=== PATIENT | male | born 1955 | race Two or more races ===

== ENCOUNTER 2024-05-06 10:38 | Emergency (ER) | payer MEDICARE, OTHER ==
[~2024-05-06] VITALS: Ht 172.7 cm; Wt 72.8 kg
--- NOTE | 2024-05-06 11:51 | DVH ---
EXAM: CT HEAD WITHOUT CONTRAST INDICATION: fall injury TECHNIQUE: CT of the head without intravenous contrast. Radiation Dose : 1. Head: CT Dose: CTDI volume is 50 mGy. Dose-length product is 908 mGy*cm The dose indicators for CT are the volume Computed Tomography (CT) Dose Index (CTDIvol) and the Dose Length Product (DLP), and are measured in units of mGy and mGy-cm, respectively. These indicators are not patient dose, but values generated from the CT scanner acquisition factors. The report includes radiation exposure data for exposures received during this examination. COMPARISON: None FINDINGS: There is no evidence of acute intracranial hemorrhage, extra-axial collection, mass effect, midline s hift, herniation or hydrocephalus. 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 The samaniego-white differentiation is intact. Patchy periventricular and subcortical white matter hypoattenuation is nonspecific but may be related to small vessel ischemic disease. The visualized paranasal sinuses and mastoid air cells are clear. The surrounding soft tissues and osseous structures are unremarkable. IMPRESSION: 1. No acute intracranial abnormality. 2. Chronic infarct in the right occipital region. Radiation optimization: All CT scans at this facility use at least one of these dose optimization deloris hniques: automated exposure control mA and/or kV adjustment per patient size (includes targeted exam s where dose is matched to clinical indication) or iterative reconstruction.
--- NOTE | 2024-05-06 11:51 | ED.PDOC ---
Jing. trauma (HPI) HPI Comments 69 y.o male accompanied by daughter, presents to the ED for an evaluation of ALOC this morning around 0200 associated with left sided rib pain. Daughter reports patient woke up to use the restroom, heard a loud noise and found patient unconscious and on the floor. Patient was hard to arouse and when he did regain consciousness, he was unable to to call LOC. Patient reports feeling a tingling sensation to bilateral legs prior to syncopal and is now radiated throughout his body including his hands. Daughter mentions assisting patient up to his room, took his blood pressure and blood glucose then which both were elevated. BG read 186 at home and upon arrival read 286. Patient complains of left rib pain, tender on palpation and described as sharp and non radiating. Patient denies any head, neck, back pain, chest pain, SOB, dizziness now, fever, chills or recent illness/sick contact exposure. 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 Chief Complaint: Fall Injury Time Seen by MD: 11:36 Primary Care Provider: AMELIE Reviewed notes: Nurses Notes, Medications, Allergies Allergies: Coded Allergies: NO KNOWN ALLERGIES (Unverified , 05/06/24) Home Meds Active Scripts Gabapentin (Gabapentin) 300 Mg Cap, 1 CAP PO TID PRN for 10 Days, #60 CAP 5 Refills Prov:HARMEET PAGAN MD 05/06/24 Hydrocodone-Acetaminophen (Hydrocodone Bitartrate/AC 5-325 mg) 1 Tab Tab, 1 TAB PO Q6HP PRN for 10 Days, #40 TAB Prov:HARMEET PAGAN MD 05/06/24 Information Source: Patient, Relative (Daughter ) Mode of Arrival: Wheelchair Severity: Moderate Timing: Hours Duration: Since onset Location: Other (left rib pain ) Location of laceration: None Mechanism: Fall Associated signs and symtoms: Other Past Medical History PAST MEDICAL HISTORY: CVA, DM, AL, PE Surgical History: PTCA Family History Family History: Reviewed,noncontributory to illness Social History Smoker: Non-Smoker Alcohol: Denies ETOH Use Drugs: Denies Drug Use Lives In: Home Constitutional: denies: chills, diaphoresis, fatigue, fever, malaise, sweats, weakness, others EENTM: denies: blurred vision, double vision, ear bleeding, ear discharge, ear drainage, ear pain, ear ringing, eye pain, eye redness, hearing loss, mouth pain, mouth swelling, nasal discharge, nose bleeding, nose congestion, nose pain, photophobia, tearing, throat pain, throat swelling, voice changes, others Respiratory: denies: cough, hemoptysis, orthopnea, SOB at rest, shortness of breath, SOB with excertion, stridor, wheezing, others Cardiovascular: reports: syncope; denies: chest pain, dizzy spells, diaphoresis, Dyspnea on exertion, edema, irregular heart beat, left arm pain, lightheadedness, palpitations, PND, others Gastrointestinal: denies: abdomen distended, abdominal pain, blood streaked bowels, constipated, diarrhea, dysphagia, difficulty swallowing, hematemesis, melena, nausea, poor appetite, poor fluid intake, rectal bleeding, rectal pain, vomiting, others Genitourinary: denies: burning, dysuria, flank pain, frequency, hematuria, incontinence, penile discharge, penile sore, pain, testicle pain, testicle swelling, urgency, others Neurological: reports: fainting, tingling (body ); denies: dizziness, headache, left sided numbness, left sided weakness, numbness, paresthesia, pre-existing deficit, right sided numbness, right sided weakness, seizure, speech problems, tremors, weakness, others Musculoskeletal: reports: others (left sided rib pain ); denies: back pain, gout, joint pain, joint swelling, muscle pain, muscle stiffness, neck pain Integumetry: denies: bruises, change in color, change in hair/nails, dryness, laceration, lesions, lumps, rash, wounds, others Allergic/Immunocompromised: denies: Difficulty Healing, Frequent Infections, Hives, Itching, others Hematologic/Lymphatic: denies: anemia, blood clots, easy bleeding, easy bruising, swollen glands, others Endocrine: denies: excessive hunger, excessive sweating, excessive thirst, excessive urination, flushing, intolerance to cold, intolerance to heat, unexplained weight gain, unexplained weight loss, others Psychiatric: denies: anxiety, bipolar disorder, depression, hopeless, panic disorder, schizophrenia, sleepless, suicidal, others All Other Systems: Reviewed and Negative Physical Exam General Appearance: Mild Distress HEENT: Normal ENT Inspection, Pharynx Normal, TMs Normal Neck: Full Range of Motion, Non-Tender, Normal, Normal Inspection Respiratory: Chest Non-Tender, Lungs Clear, No Accessory Muscle Use, No Respiratory Distress, Normal Breath Sounds Cardiovascular: No Edema, No JVD, No Murmur, No Gallop, Normal Peripheral Pulses, Regular Rate/Rhythm Breast Exam: Deferred Gastrointestinal: No Organomegaly, Non Tender, No Pulsatile Mass, Normal Bowel Sounds, Soft Genitalia: Deferred Pelvic: Deferred Rectal: Deferred Extremities: No calf tenderness, Normal capillary refill, Normal inspection, Normal range of motion, Non-tender, No pedal edema Musculoskeletal : Location: Left Apperance: Tenderness: Moderate (lateral posterior rib pain ) Neurologic: Alert, practice assistant II-XII nml as Tested, No Motor Deficits, Normal Affect, Normal Mood, No Sensory Deficits Cerebellar Function: Normal Reflexes: Normal Skin: Dry, Normal Color, Warm Lymphatic: No Adenopathy Was a procedure done? Was a procedure done?: No Differential Diagnosis Multiple Trauma: Closed Head Injury, Fractures, Abrasions, Contusion, Encephalopathy, Other (Hypertension, Hyperglycemia, CVA, TIA, Seizure) X-Ray, Labs, Meds, VS Vital Signs Date Time Temp Pulse Resp B/P (MAP) Pulse Ox O2 Delivery O2 Flow Rate FiO2 05/06/24 13:01 61 20 05/06/24 13:01 98.6 61 20 130/72 (91) 96 98.6 05/06/24 11:02 63 05/06/24 10:46 97.6 59 20 150/64 (92) 97 97.6 Lab Test 05/06/24 10:52 Range/Units POC Glucose 254 H 70-106 mg/dl Current Medications Medications (Trade) Dose Ordered Sig/Tara Route Start Time Stop Time Status Last Admin Acetaminophen/ Hydrocodone Bitart ([place] 5/325MG Tab) 1 tab ONCE ONCE PO 05/06/24 12:30 05/06/24 12:31 DC 05/06/24 12:52 EXAM: CT CERVICAL WITHOUT CONTRAST INDICATION: fall injury EXAM DATE: 05/06/2024 11:28 AM COMPARISON: None TECHNIQUE: Multiple axial CT images of the cervical spine were obtained using bone algorithm. Axial and coronal reformatting was done. Bone and soft tissue windows were reviewed. Radiation Dose Information: CT Dose: CTDI volume is 21.95 mGy. Dose-length product is 571.7 mGy*cm FINDINGS: The cervical alignment is intact. No acute cervical spine fracture is identified. The vertebral body heights are intact. No suspicious osseous lesions are identified. No significant degenerative changes are identified. There is no prevertebral soft tissue swelling. IMPRESSION: 1. No evidence of acute cervical spine fracture or traumatic malalignment. 2. All CT scans at this medical facility are performed using dose modulation deloris hniques as appropriate to a performed exam including the following: Automated exposure control was utilized; adjustment of the MA and/or KV according to patient size; and use of iterative reconstruction technique. EXAM: CT HEAD WITHOUT CONTRAST INDICATION: fall injury TECHNIQUE: CT of the head without intravenous contrast. Radiation Dose : 1. Head: CT Dose: CTDI volume is 50 mGy. Dose-length product is 908 mGy*cm The dose indicators for CT are the volume Computed Tomography (CT) Dose Index (CTDIvol) and the Dose Length Product (DLP), and are measured in units of mGy and mGy-cm, respectively. These indicators are not patient dose, but values generated from the CT scanner acquisition factors. The report includes radiation exposure data for exposures received during this examination. COMPARISON: None FINDINGS: There is no evidence of acute intracranial hemorrhage, extra-axial collection, mass effect, midline shift, herniation or hydrocephalus. 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 The samaniego-white differentiation is intact. Patchy periventricular and subcortical white matter hypoattenuation is nonspecific but may be related to small vessel ischemic disease. The visualized paranasal sinuses and mastoid air cells are clear. The surrounding soft tissues and osseous structures are unremarkable. IMPRESSION: 1. No acute intracranial abnormality. 2. Chronic infarct in the right occipital region. EXAMINATION: XY L RIB X RAY INDICATION: fall injury COMPARISON: None TECHNIQUE: Frontal view of the chest and 5 views of the left ribs history FINDINGS: No focal consolidation, pleural effusion or significant pneumothorax. Normal cardiomediastinal silhouette. Multiple left-sided rib fractures involving left 7th through 9th ribs. IMPRESSION: No acute cardiopulmonary disease. Multiple left-sided rib fractures involving left 7th through 9th ribs. Time of 1ST Reevaluation: 11:44 Reevaluation 1ST: Unchanged Patient Education/Counseling: Diagnosis, Treatment, Prognosis Family Education/Counseling: Diagnosis, Treatment, Prognosis Departure 1 Departure Time of Disposition: 12:30 Impression: Primary Impression: Type 2 diabetes mellitus with hyperglycemia Additional Impression: Left rib fracture Disposition: HOME / SELF CARE / HOMELESS Condition: Stable e-Prescriptions Gabapentin (Gabapentin) 300 Mg Cap 1 CAP PO TID PRN for 10 Days, #60 CAP 5 Refills Prov: HARMEET PAGAN MD 05/06/24 Hydrocodone-Acetaminophen (Hydrocodone Bitartrate/AC 5-325 mg) 1 Tab Tab 1 TAB PO Q6HP PRN for 10 Days, #40 TAB Prov: HARMEET PAGAN MD 05/06/24 Discharged With: Self Critical Care Note Critical Care Time?: No Stability Stability form required: No Heart Score Heart Score: Heart Score Response (Comments) Value History N/A 0 EKG N/A 0 Age N/A 0 Risk Factors N/A 0 Troponin N/A 0 Total 0 I personally scribed for HARMEET PAGAN MD ([email or web address]) on 05/06/24 at 11:51. Electronically submitted by Christel Henriquez ([facility] I personally scribed for HARMEET PAGAN MD ([email or web address]) on 05/06/24 at 12:46. Electronically submitted by Christel Henriquez ([facility] HARMEET PAGAN MD May 06, 2024 11:51
--- NOTE | 2024-05-06 12:08 | DVH ---
EXAM: CT CERVICAL WITHOUT CONTRAST INDICATION: fall injury EXAM DATE: 05/06/2024 11:28 AM COMPARISON: None TECHNIQUE: Multiple axial CT images of the cervical spine were obtained using bone algorithm. Axial a nd coronal reformatting was done. Bone and soft tissue windows were reviewed. Radiation Dose Information: CT Dose: CTDI volume is 21.95 mGy. Dose-length product is 571.7 mGy*cm FINDINGS: The cervical alignment is intact. No acute cervical spine fracture is identified. The vertebral body heights are intact. No suspicious osseous lesions are identified. No significant degenerative changes are identified. There is no prevertebral soft tissue swelling. IMPRESSION: 1. No evidence of acute cervical spine fracture or traumatic malalignment. 2. All CT scans at this medical facility are performed using dose modulation techniques as appropriat e to a performed exam including the following: Automated exposure control was utilized; adjustment of the MA and/or KV according to patient size; and use of iterative reconstruction technique.
--- NOTE | 2024-05-06 12:13 | DVH ---
EXAMINATION: XY L RIB X RAY INDICATION: fall injury COMPARISON: None TECHNIQUE: Frontal view of the chest and 5 views of the left ribs history FINDINGS: No focal consolidation, pleural effusion or significant pneumothorax. Normal cardiomediastinal silhou ette. Multiple left-sided rib fractures involving left 7th through 9th ribs. IMPRESSION: No acute cardiopulmonary disease. Multiple left-sided rib fractures involving left 7th through 9th ribs.
[2024-05-06] MEDS ORDERED: GABA-1250 PO (12:29)
[2024-05-06] MEDS ORDERED: HYDR-4902 PO (12:29)
[2024-05-06] MEDS: HYDROcodone-ACET 5/325MG TAB PO ONE (12:52)
[2024-05-06 13:01] VITALS: BP 130/72; PULSE 61; RESP 20; TEMP 98.6; O2SAT 96
--- NOTE | 2024-05-07 11:12 | ECG ---
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
== END 2024-05-06 13:08 | disposition home or self-care (01) ==
LOC: ER 10:38
DX: S22.42XA Multiple fractures of ribs, left side, initial encounter for closed fracture (principal); E11.65 Type 2 diabetes mellitus with hyperglycemia; Z79.899 Other long term (current) drug therapy; X58.XXXA Exposure to other specified factors, initial encounter; Y93.89 Activity, other specified; Y92.89 Other specified places as the place of occurrence of the external cause; Y99.8 Other external cause status
CPT/HCPCS: 70450; 71101; 72125; 82947; 82962; 93005

== ENCOUNTER → 2024-06-19 | Outpatient (CLI) | payer MEDICARE ==
[~2024-06-19] MED LIST: GABA-1250 PO; HYDR-4902 PO
[2024-06-19 08:29] LABS: Urine Bacteria None Seen /hpf (None Seen)
[2024-06-19 09:11] LABS: Basophils # (auto) 0 10 ^3/uL (0-0.2); Basophils % (auto) 0.5 % (0.0-2.0); Eosinophils # (auto) 0.2 10 ^3/uL (0-0.8); Eosinophils % (auto) 2.2 % (0.0-7.0); Hematocrit 50.1 % (41.0-53.0); Hemoglobin 17.2 g/dL (13.5-17.5); Lymphocytes # (auto) 1.9 10 ^3/uL (0.4-5.4); Lymphocytes % (auto) 23.7 % (10.0-50.0); Mean Corpuscular Hemoglobin 31.7 pg (28.0-32.0); Mean Corpuscular Hgb Conc. 34.3 g/dL (32.0-36.0); Mean Corpuscular Volume 92.5 fL (80.0-100.0); Monocytes # (auto) 0.4 10 ^3/uL (0-1.3); Monocytes % (auto) 5.3 % (0.0-12.0); Neutrophils # (auto) 5.3 10 ^3/uL (1.6-8.6); Neutrophils % (auto) 68.3 % (37.0-80.0); Nucleated Red Blood Cells % 0.2 %; Platelet Count (auto) 215 10^3/uL (140-450); Red Blood Cells 5.42 10^6/uL (4.5-5.90); White Blood Cell 7.8 10^3/uL (4.4-10.8)
[2024-06-19 09:24] LABS: % Iron Saturation 35.3 % (20-55)
[2024-06-19 09:25] LABS: Prostate Specific Antigen 0.68 ng/mL (0.0-4.0)
[2024-06-19 09:29] LABS: Alanine Aminotransferase 31 U/L (7-40); Anion Gap 9 (5-15); Aspartate Aminotransferase 24 U/L (13-40); BUN/Creatinine Ratio 12.9 (10.0-20.0); Blood Urea Nitrogen 16 mg/dL (9-23); Carbon Dioxide 27 mmol/L (20-31); Chloride 101 mmol/L (98-107); LDL Cholesterol 75 mg/dL (< 100); Potassium 4.7 mmol/L (3.5-5.1); Sodium 137 mmol/L (136-145); Triglycerides 89 mg/dL (< 150)
[2024-06-19 09:30] LABS: Cholesterol 135 mg/dL (< 200); Ferritin 70.2 ng/mL (22-322); HDL Cholesterol 43 mg/dL (40-59)
[2024-06-19 09:44] LABS: Albumin 5.3 g/dL (3.2-4.8); Alkaline Phosphatase 144 U/L (46-116); Bilirubin, Total 1.3 mg/dL (0.2-1.0); Calcium 10.5 mg/dL (8.7-10.4); Glucose 153 mg/dL (74-106); Total Protein 8.3 g/dL (5.7-8.2)
[2024-06-19 10:46] LABS: Urine Blood Negative /uL (Negative); Urine Clarity Clear (Clear); Urine Color Light-Yellow (Yellow); Urine Protein, UAD Negative (Negative); Urine Specific Gravity 1.027 (1.001-1.035); Urine Squamous Epithelial Cell None Seen /hpf (<5); Urine Urobilinogen Normal (Negative); Urine WBC < 1 /HPF (0-3); Urine pH 5.5 (5.0-9.0)
[2024-06-20 10:24] LABS: Hepatitis B Core Total AB Negative (Negative)
[2024-06-20 10:30] LABS: Hepatitis A Total Antibody Positive (Negative); Hepatitis B Surface Antibody Positive (Negative); Hepatitis B Surface Antigen Negative (Negative)
[2024-06-20 10:31] LABS: Hepatitis C Antibody Negative (Negative)
== END | disposition home or self-care (01) ==
LOC: LAB 07:59
PROVIDERS: ATTEND Nurse Practitioner Family
DX: I10 Essential (primary) hypertension (principal); E11.9 Type 2 diabetes mellitus without complications; E55.9 Vitamin D deficiency, unspecified; E78.5 Hyperlipidemia, unspecified; D64.9 Anemia, unspecified; Z12.11 Encounter for screening for malignant neoplasm of colon; Z12.5 Encounter for screening for malignant neoplasm of prostate; Z11.3 Encounter for screening for infections with a predominantly sexual mode of transmission; Z79.899 Other long term (current) drug therapy
CPT/HCPCS: 36415; 80053; 80061; 81001; 82306; 82607; 82728; 83036; 83540; 83550; 84153; 84443; 85025; 86703; 86704; 86706; 86708; 86780; 86803; 87340

== ENCOUNTER 2024-11-13 07:43 | Outpatient (CLI) | payer MEDICARE ==
[2024-11-13 08:10] LABS: Hematocrit 47.5 % (41.0-53.0); Hemoglobin 16.2 g/dL (13.5-17.5); Mean Corpuscular Hemoglobin 31.9 pg (28.0-32.0); Mean Corpuscular Volume 93.2 fL (80.0-100.0); Nucleated Red Blood Cells % 0.1 %
[2024-11-13 08:41] LABS: Microalb/Creat Ratio, Urine < 3.00
[2024-11-13 08:42] LABS: Alanine Aminotransferase 29 U/L (7-40); Albumin 4.8 g/dL (3.2-4.8); Anion Gap 11 (5-15); BUN/Creatinine Ratio 11.6 (10.0-20.0); Blood Urea Nitrogen 14 mg/dL (9-23); Calcium 9.7 mg/dL (8.7-10.4); Carbon Dioxide 26 mmol/L (20-31); Chloride 100 mmol/L (98-107); Potassium 4.6 mmol/L (3.5-5.1); Sodium 137 mmol/L (136-145); Total Protein 8.0 g/dL (5.7-8.2); Triglycerides 93 mg/dL (< 150)
[2024-11-13 08:43] LABS: Alkaline Phosphatase 128 U/L (46-116); Bilirubin, Total 1.1 mg/dL (0.2-1.0); Cholesterol 126 mg/dL (< 200); Glucose 155 mg/dL (74-106); HDL Cholesterol 40 mg/dL (40-59)
== END 2024-11-13 17:00 | disposition home or self-care (01) ==
LOC: LAB 07:43
PROVIDERS: ATTEND Nurse Practitioner Family
DX: I10 Essential (primary) hypertension (principal); E11.9 Type 2 diabetes mellitus without complications; E78.5 Hyperlipidemia, unspecified; E55.9 Vitamin D deficiency, unspecified; D64.9 Anemia, unspecified; Z12.11 Encounter for screening for malignant neoplasm of colon
CPT/HCPCS: 36415; 80053; 80061; 82043; 82570; 83036; 84443; 85025

== ENCOUNTER 2024-12-11 10:04 | Emergency (ER) | payer MEDICARE, MEDICAID ==
[~2024-12-11] VITALS: Ht 167.6 cm; Wt 66.1 kg
[2024-12-11] MEDS: HYDROcodone-ACET 5/325MG TAB PO ONE (11:14)
--- NOTE | 2024-12-11 11:36 | ED.PDOC ---
GI ASSESSMENT HPI Comments 69-year-old male who is Estonian-speaking presents to the ER with daughter, who translates and With a prior MHx of diabetes, high lipids, PE, [place]: Surgical history of CABG, PTCA, and with the chief complaint of abdomen distention, mild abdominal pain and lower back pain. The patient reports on having a sudden onset of bilateral flank pain while sleeping 15 days ago which radiates diffusely to the abdomen and is associated with shortness of breath and neck pain. patient notes on urinating this morning with a weak stream and complains of bladder emptying and and having to press on his lower abdomen to relief his bladder. Back pain is also constant associated with the lateral movements. Denies any other symptoms at this time. Started Duration Quality Radiation Severity Provocation Alleviation therapies tried Last bowel movement Denies fevers chills night sweats unintentional weight loss Denies nausea vomiting diarrhea Denies blood in the stool Denies sick contact with similar symptoms Denies new foods/medications Denies family history of GI cancer ETOH per week Denies urgency, frequency, hematuria Denies vaginal discharge Chief Complaint: Urinary Time Seen by MD: 11:20 Primary Care Provider: AMELIE Reviewed Notes: Nurses Notes, Medications, Allergies Allergies: Coded Allergies: NO KNOWN ALLERGIES (Unverified , 05/06/24) Home Meds Active Scripts Gabapentin (Gabapentin) 300 Mg Cap, 1 CAP PO TID PRN for 10 Days, #60 CAP 5 Refills Prov:HARMEET PAGAN MD 05/06/24 Hydrocodone-Acetaminophen (Hydrocodone Bitartrate/AC 5-325 mg) 1 Tab Tab, 1 TAB PO Q6HP PRN for 10 Days, #40 TAB Prov:HARMEET PAGAN MD 05/06/24 Information Source: Patient Mode of Arrival: Ambulatory Timing: Weeks Duration: Since onset Prehospital treatment: None Quality: Aching Vomitus: None Stool: Normal Severity: Moderate Recent: None Recent Hx of: None Pain Location: Diffuse Associated sign and symptoms: Abdominal Pain Past Medical History PAST MEDICAL HISTORY: CVA, DM, High Lipids, [place], PE Surgical History: CABG, PTCA Family History Family History: Reviewed,noncontributory to illness, Unknown Social History Smoker: Non-Smoker Alcohol: Denies ETOH Use Drugs: Denies Drug Use Lives In: Home Constitutional: denies: chills, diaphoresis, fatigue, fever, malaise, sweats, weakness, others EENTM: denies: blurred vision, double vision, ear bleeding, ear discharge, ear drainage, ear pain, ear ringing, eye pain, eye redness, hearing loss, mouth p ain, mouth swelling, nasal discharge, nose bleeding, nose congestion, nose pain, photophobia, tearing, throat pain, throat swelling, voice changes, others Respiratory: reports: shortness of breath; denies: cough, hemoptysis, orthopnea, SOB at rest, SOB with excertion, stridor, wheezing, others Cardiovascular: denies: chest pain, dizzy spells, diaphoresis, Dyspnea on exertion, edema, irregular heart beat, left arm pain, lightheadedness, palpita tions, PND, syncope, others Gastrointestinal: reports: abdominal pain; denies: abdomen distended, blood streaked bowels, constipated, diarrhea, dysphagia, difficulty swallowing, hematemesis, melena, nausea, poor appetite, poor fluid intake, rectal bleeding, rectal pain, vomiting, others Genitourinary: denies: burning, dysuria, flank pain, frequency, hematuria, incontinence, penile discharge, penile sore, pain, testicle pain, testicle swelling, urgency, others Neurological: denies: dizziness, fainting, headache, left sided numbness, left sided weakness, numbness, paresthesia, pre-existing deficit, right sided numbness, right sided weakness, seizure, speech problems, tingling, tremors, weakness, others Musculoskeletal: reports: back pain, neck pain; denies: gout, joint pain, joint swelling, muscle pain, muscle stiffness, others Integumetry: denies: bruises, change in color, change in hair/nails, dryness, laceration, lesions, lumps, rash, wounds, others Allergic/Immunocompromised: denies: Difficulty Healing, Frequent Infections, Hives, Itching, others Hematologic/Lymphatic: denies: anemia, blood clots, easy bleeding, easy bruising, swollen glands, others Endocrine: denies: excessive hunger, excessive sweating, excessive thirst, excessive urination, flushing, intolerance to cold, intolerance to heat, unexplained weight gain, unexplained weight loss, others Psychiatric: denies: anxiety, bipolar disorder, depression, hopeless, panic disorder, schizophrenia, sleepless, suicidal, others All Other Systems: Reviewed and Negative Physical Exam Exam Comments Localized TTP to the bilateral spinal sacral lumbar area General Appearance: No Apparent Distress, Normal HEENT: Normal ENT Inspection, Pharynx Normal, TMs Normal Neck: Full Range of Motion, Non-Tender, Normal, Normal Inspection Respiratory: Chest Non-Tender, Lungs Clear, No Accessory Muscle Use, No Respiratory Distress, Normal Breath Sounds Cardiovascular: No Edema, No JVD, No Murmur, No Gallop, Normal Peripheral Pulses, Regular Rate/Rhythm Breast Exam: Deferred Gastrointestinal: No Organomegaly, Non Tender, No Pulsatile Mass, Normal Bowel Sounds, Soft Genitalia: Deferred Pelvic: Deferred Rectal: Deferred Extremities: No calf tenderness, Normal capillary refill, Normal inspection, Normal range of motion, Non-tender, No pedal edema Musculoskeletal : Apperance: Normal Neurologic: Alert, midwife II-XII nml as Tested, No Motor Deficits, Normal Affect, Normal Mood, No Sensory Deficits Cerebellar Function: Normal Reflexes: Normal Skin: Dry, Normal Color, Warm Lymphatic: No Adenopathy Was a procedure done? Was a procedure done?: No X-Ray, Labs, Meds, VS Vital Signs Date Time Temp Pulse Resp B/P (MAP) Pulse Ox O2 Delivery O2 Flow Rate FiO2 12/11/24 10:07 97.7 67 20 130/73 98 97.7 Lab Test 12/11/24 11:06 12/11/24 10:56 Range/Units White Blood Count 9.6 4.4-10.8 10^3/uL Red Blood Count 5.22 4.5-5.90 10^6/uL Hemoglobin 16.4 13.5-17.5 g/dL Hematocrit 48.1 41.0-53.0 % Mean Corpuscular Volume 92.0 80.0-100.0 fL Mean Corpuscular Hemoglobin 31.4 28.0-32.0 pg Mean Corpuscular Hemoglobin Concent 34.1 32.0-36.0 g/dL Red Cell Distribution Width 13.1 11.8-14.3 % Platelet Count 289 140-450 10^3/uL Mean Platelet Volume 8.2 6.9-10.8 fL Neutrophils (%) (Auto) 75.1 37.0-80.0 % Lymphocytes (%) (Auto) 16.7 10.0-50.0 % Monocytes (%) (Auto) 6.7 0.0-12.0 % Eosinophils (%) (Auto) 1.0 0.0-7.0 % Basophils (%) (Auto) 0.5 0.0-2.0 % Neutrophils # (Auto) 7.2 1.6-8.6 10 ^3/uL Lymphocytes # (Auto) 1.6 0.4-5.4 10 ^3/uL Monocytes # (Auto) 0.6 0-1.3 10 ^3/uL Eosinophils # (Auto) 0.1 0-0.8 10 ^3/uL Basophils # (Auto) 0 0-0.2 10 ^3/uL Nucleated Red Blood Cells 0.0 % Sodium Level 133 L 136-145 mmol/L Potassium Level 4.7 3.5-5.1 mmol/L Chloride Level 94 L 98-107 mmol/L Carbon Dioxide Level 29 20-31 mmol/L Anion Gap 10 5-15 Blood Urea Nitrogen 15 9-23 mg/dL Creatinine 1.35 H 0.700-1.30 mg/dL Glomerular Filtration Rate Calc 58 >90 mL/min BUN/Creatinine Ratio 11.1 10.0-20.0 Serum Glucose 199 H 74-106 mg/dL Calcium Level 9.9 8.7-10.4 mg/dL Total Bilirubin 1.1 H 0.2-1.0 mg/dL Aspartate Amino Transferase (AST) 33 13-40 U/L Alanine Aminotransferase (ALT) 31 7-40 U/L Alkaline Phosphatase 189 H 46-116 U/L Total Protein 8.9 H 5.7-8.2 g/dL Albumin 5.2 H 3.2-4.8 g/dL Lipase Pending Urine Color Colorless Yellow Urine Clarity Clear Clear Urine pH 6.5 5.0-9.0 Urine Specific [place] 1.007 1.001-1.035 Urine Protein Negative Negative Urine Ketones Negative Negative Urine Blood Negative Negative /uL Urine Nitrite Negative Negative Urine Bilirubin Negative Negative Urine Urobilinogen Normal Negative mg/dL Urine Leukocyte Esterase Negative Negative /uL Urine RBC 4 0 - 3 /hpf Urine Microscopic WBC < 1 0-3 /HPF Urine Squamous Epithelial Cells None seen <5 /hpf Urine Bacteria None seen None Seen /hpf Urine Glucose 4+ H Normal mg/dL Current Medications Medications (Trade) Dose Ordered Sig/Tara Route Start Time Stop Time Status Last Admin Acetaminophen/ Hydrocodone Bitart ([place] 5/325MG Tab) 1 tab ONCE ONCE PO 12/11/24 11:00 12/11/24 11:01 DC 12/11/24 11:14 X-Ray, Labs, Meds, VS Comment 69-year-old male who is Estonian-speaking presents to the ER with daughter, who translates and With a prior MHx of diabetes, high lipids, PE, KS: Surgical h istory of CABG, PTCA, and with the chief complaint of abdomen distention, mild abdominal pain and lower back pain. Patient arrives alert and oriented, ABC's intact, afebrile, vital signs stable, saturating well in room air Peripheral IV insertion+ labs were ordered. CBC was ordered to exclude anemia, blood loss, or infection. CMP was ordered to exclude electrolyte abnormalities, renal failure, dehydration, hyperglycemia and/or liver enzyme abnormalities. Lipase Urinalysis was ordered to rule out UTI or hematuria. Diagnostic imaging ordered by me and results interpreted by radiology : CT of abdomen Labs in the ED showed (pertinent+ and then pertinent-) Patient was given: Hydrocodone. Tolerated medications with no adverse reaction. Additional MDM Review of External, Non-ED records: External records reviewed. Discussion with independent historian (EMS, family) history obtained from the patient/parents (if applicable) at bedside Chronic conditions affecting care: None Social determinants of health affecting care: None Consideration of admission (observation or admission): I considered escalation of care to admission for this patient, however given the reassuring workup, the patient is safe for outpatient management. Discussion with the Radiology: No Tests considered but not performed: Prescription medication considered but not given: 12 lead EKG interpretation: Time of 1ST Reevaluation: 11:50 Reevaluation 1ST: Unchanged Patient Education/Counseling: Diagnosis, Treatment, Prognosis Family Education/Counseling: Diagnosis, Treatment, Prognosis SEPSIS Sepsis Screen Date sepsis recognized/suspect: Dec 11, 2024 Time Sepsis recognized/suspect: 101 Recent Procedure: No On Antibiotic Therapy: No Respiratory Rate >20: No Heart Rate >90: No Temp<36 C (96.8 F) or >38.3 C: No SBP <90 or MAP <65 mmHG: No New Acute Mental Status Change: No Is the patient on CPAP, BIPAP,: No Physician Orders Comprehensive Metabolic Panel (12/11/24 10:56) Lipase (11/4/25 10:56) Ct Ab Pel Wo Con-No Oral Or Iv (12/11/24 10:56) Vital Signs Date Time Temp Pulse Resp B/P (MAP) Pulse Ox O2 Delivery O2 Flow Rate FiO2 12/11/24 10:07 97.7 67 20 130/73 98 97.7 Laboratory Tests Test 12/11/24 11:06 White Blood Count 9.6 10^3/uL (4.4-10.8) Medications Medications Dose Ordered Sig/Tara Route Start Time Stop Time Status Last Admin Dose Admin Acetaminophen/ Hydrocodone Bitart 1 tab ONCE ONCE PO 12/11/24 11:00 12/11/24 11:01 DC 12/11/24 11:14 Departure 1 Departure Time of Disposition: 14:13 Impression: Primary Impression: Abdominal pain Qualified Codes: R10.84 - Generalized abdominal pain Additional Impression: Back pain Qualified Codes: M54.50 - Low back pain, unspecified Disposition: 01 HOME / SELF CARE / HOMELESS Condition: Stable Critical Care Note Critical Care Time?: No Stability Stability form required: No I personally scribed for JUDY GODOY NP ([email or web address]) on 12/11/24 at 11:36. Electronically submitted by Wes Phan ([email or web address]). JUDY GODOY NP Dec 11, 2024 11:36
[2024-12-11 11:39] LABS: Hematocrit 48.1 % (41.0-53.0); Hemoglobin 16.4 g/dL (13.5-17.5); Mean Corpuscular Hemoglobin 31.4 pg (28.0-32.0); Mean Corpuscular Volume 92.0 fL (80.0-100.0); Nucleated Red Blood Cells % 0.0 %
[2024-12-11 12:00] LABS: Alanine Aminotransferase 31 U/L (7-40); Anion Gap 10 (5-15); BUN/Creatinine Ratio 11.1 (10.0-20.0); Blood Urea Nitrogen 15 mg/dL (9-23); Calcium 9.9 mg/dL (8.7-10.4); Carbon Dioxide 29 mmol/L (20-31); Potassium 4.7 mmol/L (3.5-5.1)
[2024-12-11 12:01] LABS: Albumin 5.2 g/dL (3.2-4.8); Alkaline Phosphatase 189 U/L (46-116); Bilirubin, Total 1.1 mg/dL (0.2-1.0); Chloride 94 mmol/L (98-107); Glucose 199 mg/dL (74-106); Sodium 133 mmol/L (136-145); Total Protein 8.9 g/dL (5.7-8.2)
[2024-12-11 12:56] LABS: Urine Protein, UAD Negative (Negative)
--- NOTE | 2024-12-11 13:21 | DVH ---
EXAM: CT CT AB PEL WO CON-NO ORAL OR IV INDICATION: Ab pain TECHNIQUE: Volumetric multidetector CT images of the abdomen and pelvis were obtained without contrast. All CT scans at this facility use dose modulation, iterative reconstruction, and/or weight based dosing when appropriate to reduce radiation dose to as low as reasonably achievable. COMPARISON: CT CERVICAL WITHOUT CONTRAST on DOS: 05/06/24 FINDINGS: [LOWER CHEST]: The partially visualized lung bases are clear without a pleural effusion. The cardiac size is normal without pericardial effusion. coronary artery calcifications. Postoperative changes to the heart. Small area of deposition along the left ventricular apex compatible with a prior infarct. [LIVER]: Normal hepatic size without suspicious focal lesion. [GALLBLADDER AND BILIARY TREE]: Absent [SPLEEN]: Unremarkable. [PANCREAS]: Unremarkable. [ADRENAL GLANDS]: Unremarkable [KIDNEYS]: No hydronephrosis. No nephroureterolithiasis. Enhancing possibler lesion measuring 8.5 by 3 cm in the left anterior superior kidney. Benign- appearing cysts of the left posterior kidney. [BLADDER]: Unremarkable for the degree distention. [REPRODUCTIVE ORGANS]: Unremarkable. [BOWEL/MESENTERY]: Stomach is normal. No CT evidence of bowel obstruction. mild stool burden. [ASCITES]: Absent [LYMPHADENOPATHY]: No pathologically enlarged lymph nodes by CT size criteria [VASCULATURE]: No aneurysmal dilatation. [ABDOMINAL WALL]: Unremarkable. [MUSCULOSKELETAL]: No acute fracture or aggressive focal osseous lesion. Multifocal degenerative change of the visualized spine. prior healed low lateral rib fractures. IMPRESSION: 1. No CT evidence of an acute abdominal/pelvic process. 2. Mild stool burden. Correlate for constipation. 3. Enhancing lesion of the left anterior superior kidney. 4. Consider nonemergent CT versus MRI kidney protocol.
[2024-12-11 14:24] VITALS: BP 138/63; PULSE 68; RESP 16; TEMP 98.7; O2SAT 96
[2024-12-11 16:22] LABS: Lipase 65 U/L (12-53)
== END 2024-12-11 14:25 | disposition home or self-care (01) ==
LOC: ER 10:04
DX: R10.9 Unspecified abdominal pain (principal); M54.50 Low back pain, unspecified; E11.9 Type 2 diabetes mellitus without complications; Z86.73 Personal history of transient ischemic attack (TIA), and cerebral infarction without residual deficits
CPT/HCPCS: 36415; 74176; 80053; 81001; 83690; 85025

== ENCOUNTER 2024-12-26 10:07 | Inpatient (IN) | payer MEDICARE, MEDICAID ==
[~2024-12-26] VITALS: Ht 167.6 cm; Wt 68.0 kg
--- NOTE | 2024-12-26 10:55 | ED.PDOC ---
Back pain HPI HPI Comments Patient is a 69-year-old male with past medical history of type 2 diabetes, osteoporosis lumbar spine and bilateral hips, dyslipidemia, UT S/P PTCA x2 ANTHONY, CABG, CVA with residual left decreased vision, who comes in due to a left-sided back pain that has been ongoing for the past 2 weeks. Patient notes he came to the ER 2 weeks ago for the left-sided back pain, CT abdomen pelvis at the time was largely unremarkable except an enhancing lesion in the left kidney. Patient returns to ER for continued left-sided back pain which is now radiating down left leg for the past 5 days. At baseline patient is able to ambulate independently, however, over the last 5 days he has been having gait instability in using support to ambulate. Denies any urinary incontinence, however does note some urinary retention that has been ongoing since 11/29/2024 noting that he has to push upon his bladder for him to be able to urinate. Patient notes back pain is worse at night and with movement, constant and sharp, hes unable to bear weight on LLE. On review of systems patient is complaining of shortness of breath on exertion and urinary retention. Chief Complaint: Back Pain Time Seen by MD: 10:12 Primary Care Provider: AMELIE Allergies: Coded Allergies: NO KNOWN ALLERGIES (Unverified , 05/06/24) Home Meds Active Scripts Gabapentin (Gabapentin) 300 Mg Cap, 1 CAP PO TID PRN for 10 Days, #60 CAP 5 Refills Prov:HARMEET PAGAN MD 05/06/24 Hydrocodone-Acetaminophen (Hydrocodone Bitartrate/AC 5-325 mg) 1 Tab Tab, 1 TAB PO Q6HP PRN for 10 Days, #40 TAB Prov:HARMEET PAGAN MD 05/06/24 Mode of Arrival: Wheelchair Past Medical History PAST MEDICAL HISTORY: CVA, DM, High Lipids, [place], PE Past Medical History (Contd): type 2 diabetes, osteoporosis lumbar spine and bilateral hips, dyslipidemia, [place] S/P PTCA x2 ANTHONY, CABG, CVA with residual left decreased patient Surgical History: CABG, PTCA Family History Family History: Reviewed,noncontributory to illness, Unknown Social History Smoker: Non-Smoker Alcohol: Denies ETOH Use Drugs: Denies Drug Use Lives In: Home Constitutional: denies: chills, diaphoresis, fatigue, fever, malaise, sweats, weakness, others EENTM: denies: blurred vision, double vision, ear bleeding, ear discharge, ear drainage, ear pain, ear ringing, eye pain, eye redness, hearing loss, mouth pain, mouth swelling, nasal discharge, nose bleeding, nose congestion, nose pain, photophobia, tearing, throat pain, throat swelling, voice changes, others Respiratory: reports: SOB with excertion; denies: cough, hemoptysis, orthopnea, SOB at rest, shortness of breath, stridor, wheezing, others Cardiovascular: denies: chest pain, dizzy spells, diaphoresis, Dyspnea on exertion, edema, irregular heart beat, left arm pain, lightheadedness, palpitations, PND, syncope, others Gastrointestinal: denies: abdomen distended, abdominal pain, blood streaked bowels, constipated, diarrhea, dysphagia, difficulty swallowing, hematemesis, melena, nausea, poor appetite, poor fluid intake, rectal bleeding, rectal pain, vomiting, others Genitourinary: reports: frequency, others (Urinary hesitancy); denies: burning, dysuria, flank pain, hematuria, incontinence, penile discharge, penile sore, pain, testicle pain, testicle swelling, urgency Neurological: denies: dizziness, fainting, headache, left sided numbness, left sided weakness, numbness, paresthesia, pre-existing deficit, right sided numbness, right sided weakness, seizure, speech problems, tingling, tremors, weakness, others Musculoskeletal: reports: back pain; denies: gout, joint pain, joint swelling, muscle pain, muscle stiffness, neck pain, others Integumetry: denies: bruises, change in color, change in hair/nails, dryness, laceration, lesions, lumps, rash, wounds, others Allergic/Immunocompromised: denies: Difficulty Healing, Frequent Infections, Hives, Itching, others Hematologic/Lymphatic: denies: anemia, blood clots, easy bleeding, easy bruising, swollen glands, others Endocrine: denies: excessive hunger, excessive sweating, excessive thirst, excessive urination, flushing, intolerance to cold, intolerance to heat, unexplained weight gain, unexplained weight loss, others Psychiatric: denies: anxiety, bipolar disorder, depression, hopeless, panic disorder, schizophrenia, sleepless, suicidal, others Physical Exam General Appearance: No Apparent Distress, Normal, Thin, Other (Temporal wasting noted) HEENT: Normal ENT Inspection, PERRL/EOMI Neck: Full Range of Motion, Non-Tender, Normal, Normal Inspection Respiratory: Lungs Clear, No Accessory Muscle Use, No Respiratory Distress, Normal Breath Sounds Cardiovascular: No Murmur, No Gallop, Normal Peripheral Pulses, Regular Rate/Rhythm Breast Exam: Deferred Gastrointestinal: Non Tender, Normal Bowel Sounds, Other (Left costovertebral angle tenderness) Genitalia: Deferred Pelvic: Deferred Rectal: Rectal Exam not done Extremities: Decreased range of motion, Normal capillary refill, Normal inspection, Tender, Other (Straight leg raise test positive at 45, L hip flexion +1, L hip extension +1, L plantar flexion +1, unable to bear weight on the left lower extremity) Neurologic: Abnormal Gait, Alert, No Motor Deficits, Normal Affect, No Sensory Deficits Cerebellar Function: Unable to Test Reflexes: NOT DONE Skin: Dry, Normal Color, Warm Peripheral Pulses: 2+ dorsalis pedis (R), 2+ dorsalis pedis (L) Lymphatic: NOT DONE Was a procedure done? Was a procedure done?: No Back Pain Differential Dx Differential Diagnosis: Musculoskeletal Pain, Pyelonephritis, Urinary Obstruct ion, Other (Sciatic nerve compression) Other Differential Diagnosis Femoral fracture X-Ray, Labs, Meds, VS Vital Signs Date Time Temp Pulse Resp B/P (MAP) Pulse Ox O2 Delivery O2 Flow Rate FiO2 12/26/24 10:08 98.6 79 15 116/70 96 98.6 Lab Test 12/26/24 11:00 Range/Units White Blood Count 11.3 H 4.4-10.8 10^3/uL Red Blood Count 4.81 4.5-5.90 10^6/uL Hemoglobin 15.1 13.5-17.5 g/dL Hematocrit 44.0 41.0-53.0 % Mean Corpuscular Volume 91.5 80.0-100.0 fL Mean Corpuscular Hemoglobin 31.4 28.0-32.0 pg Mean Corpuscular Hemoglobin Concent 34.3 32.0-36.0 g/dL Red Cell Distribution Width 13.1 11.8-14.3 % Platelet Count 330 140-450 10^3/uL Mean Platelet Volume 7.7 6.9-10.8 fL Neutrophils (%) (Auto) 86.6 H 37.0-80.0 % Lymphocytes (%) (Auto) 7.7 L 10.0-50.0 % Monocytes (%) (Auto) 4.2 0.0-12.0 % Eosinophils (%) (Auto) 0.7 0.0-7.0 % Basophils (%) (Auto) 0.8 0.0-2.0 % Neutrophils # (Auto) 9.8 H 1.6-8.6 10 ^3/uL Lymphocytes # (Auto) 0.9 0.4-5.4 10 ^3/uL Monocytes # (Auto) 0.5 0-1.3 10 ^3/uL Eosinophils # (Auto) 0.1 0-0.8 10 ^3/uL Basophils # (Auto) 0.1 0-0.2 10 ^3/uL Nucleated Red Blood Cells 0.0 % Sodium Level 133 L 136-145 mmol/L Potassium Level 4.0 3.5-5.1 mmol/L Chloride Level 94 L 98-107 mmol/L Carbon Dioxide Level 26 20-31 mmol/L Anion Gap 13 5-15 Blood Urea Nitrogen 25 H 9-23 mg/dL Creatinine 1.38 H 0.700-1.30 mg/dL Glomerular Filtration Rate Calc 56 >90 mL/min BUN/Creatinine Ratio 18.1 10.0-20.0 Serum Glucose 261 H 74-106 mg/dL Calcium Level 9.9 8.7-10.4 mg/dL Time of 1ST Reevaluation: 11:20 Reevaluation 1ST: Unchanged Time of 2ND Reevaluation: 12:45 Reevaluation 2ND: Unchanged Patient Education/Counseling: Diagnosis, Treatment, Prognosis, Need For Follow Up Family Education/Counseling: Diagnosis, Treatment, Prognosis, Need For Follow Up SEPSIS Sepsis Screen Date sepsis recognized/suspect: Dec 26, 2024 Time Sepsis recognized/suspect: 1010 Recent Procedure: No On Antibiotic Therapy: No Respiratory Rate >20: No Heart Rate >90: No Temp<36 C (96.8 F) or >38.3 C: No SBP <90 or MAP <65 mmHG: No New Acute Mental Status Change: No Is the patient on CPAP, BIPAP,: No Physician Orders Urinalysis (12/26/24 10:53) Bladder Scan (12/26/24 ) L Hip Complete Xray (12/26/24 11:23) Ct L Hip With Out Contrast (12/26/24 13:29) Hydrocodone-Acet 5/325mg Tab ([place] 5/32 (12/26/24 13:30) Vital Signs Date Time Temp Pulse Resp B/P (MAP) Pulse Ox O2 Delivery O2 Flow Rate FiO2 12/26/24 10:08 98.6 79 15 116/70 96 98.6 Laboratory Tests Test 12/26/24 11:00 White Blood Count 11.3 10^3/uL (4.4-10.8) H Departure 1 Departure Time of Disposition: 13:30 Impression: Primary Impression: Lumbar radiculopathy Additional Impressions: Musculoskeletal pain Lumbar sprain Back pain Hip fracture Disposition: ADMITTED INPATIENT Condition: Guarded Critical Care Note Critical Care Time?: No Stability Stability form required: NELIA Garnett RESIDENT Dec 26, 2024 10:55
[2024-12-26 11:22] LABS: Hematocrit 44.0 % (41.0-53.0); Hemoglobin 15.1 g/dL (13.5-17.5); Mean Corpuscular Hemoglobin 31.4 pg (28.0-32.0); Mean Corpuscular Volume 91.5 fL (80.0-100.0); Nucleated Red Blood Cells % 0.0 %
[2024-12-26 11:28] LABS: Potassium 4.0 mmol/L (3.5-5.1)
[2024-12-26 11:29] LABS: Anion Gap 13 (5-15); Carbon Dioxide 26 mmol/L (20-31)
[2024-12-26 11:30] LABS: Calcium 9.9 mg/dL (8.7-10.4)
[2024-12-26 11:31] LABS: Chloride 94 mmol/L (98-107); Sodium 133 mmol/L (136-145)
[2024-12-26 11:34] LABS: BUN/Creatinine Ratio 18.1 (10.0-20.0)
[2024-12-26 11:35] LABS: Blood Urea Nitrogen 25 mg/dL (9-23); Glucose 261 mg/dL (74-106)
--- NOTE | 2024-12-26 12:17 | DVH ---
Left HIP RADIOGRAPH. CLINICAL INDICATION: unable to bear weight on L TECHNIQUE: 4 views of the left hip were obtained. FINDINGS: There is no evidence of fracture, subluxation or dislocation. Moderate left hip osteoarthritis The bony mineralization is normal.No radiopaque foreign body is identified. IMPRESSION: 1. No evidence of acute bony injury.
[2024-12-26 13:49] LABS: Urine Protein, UAD Negative (Negative)
[2024-12-26] MEDS: HYDROcodone-ACET 5/325MG TAB PO ONE (14:25)
--- NOTE | 2024-12-26 14:48 | DVH ---
CLINICAL INFORMATION: Unable to bear weight on left lower extremity. TECHNIQUE: Axial CT images of the left hip were obtained without IV contrast. Coronal and sagittal reformatted images were obtained, reviewed, and stored. 3D reconstructed images were created at an independent workstation with concurrent physician supervision. All CT scans at this medical facility are performed using dose modulation techniques as appropriate to a performed exam including the following: Automated exposure control was utilized; adjustment of the MA and/or KV according to patient size; and use of iterative reconstruction technique. CTDIvol = 7.28 mGy DLP = 223.54 mGy-cm COMPARISON: XY L HIP COMPLETE XRAY on DOS: 12/26/24. CT of the abdomen and pelvis dated 12/11/2024. FINDINGS: No evidence of acute fracture. Moderate joint space narrowing in both hips. Focal area of sclerosis in the left femoral head / neck junction measuring up to 7.5 mm, likely bone island. There is a small to moderate joint effusion in the left hip. Moderate sclerosis adjacent to the left sacroiliac joint. Partially visualized Moderate arthritic changes at the pubic symphysis. Enlarged Prostate partially visualized. Mild circumferential thickening of the bladder wall. Moderate stool in the visualized portions of the colon. Moderate to marked arterial calcification. IMPRESSION: 1. No acute fracture visualized. Correlate with clinical findings. If there remains clinical suspicion for acute fracture, MRI could be considered. 2. Small to moderate left hip joint effusion. 3. Arthritic changes and Nonacute findings as described above.
[2024-12-26] MEDS ORDERED: ONDANSETRON HCL 4 MG/2 ML VIAL IV PRN (15:30)
[2024-12-26] MEDS ORDERED: DOCUSATE SOD 100 MG CAP PO PRN (15:30)
[2024-12-26] MEDS ORDERED: ACETAMINOPHEN 325 MG TAB PO PRN (15:30)
[2024-12-26] MEDS ORDERED: SPIR25TA8 PO (15:39)
[2024-12-26] MEDS ORDERED: TAMS-35 PO (15:39)
[2024-12-26] MEDS ORDERED: METO-158 PO (15:39)
[2024-12-26] MEDS ORDERED: FURO1TAB33 PO (15:39)
[2024-12-26] MEDS ORDERED: ASPI81CH49 PO (15:39)
[2024-12-26] MEDS ORDERED: DAPA1TAB4 PO (15:39)
[2024-12-26] MEDS ORDERED: METF-372 PO (15:39)
[2024-12-26] MEDS ORDERED: GLIP5TAB21 PO (15:39)
[2024-12-26] MEDS ORDERED: ATOR-47 PO (15:39)
[2024-12-26] MEDS ORDERED: DOCU-94 PO (15:39)
--- NOTE | 2024-12-26 16:10 | DVHHP2 ---
History of Present Illness Reason for Visit: Left flank pain History of Present Illness Edinson Aguirre is a 69-year-old male with past medical history of diabetes, osteoporosis, coronary artery disease, hyperlipidemia, PA, and CVA who came to the hospital for left flank pain and left leg pain. Patient states the pain began a couple weeks ago. He came to this hospital on 12/11/2024, had a CT of abdomen/pelvis and it showed a left renal lesion. He was told to follow up as an outpatient. He has seen his primary care provider and had a scan completed last Tuesday. He is waiting for the results. He came to the hospital today because for the last 6 days his pain has been increasing significantly. He states it starts on his left flank then shoots down his leg. The pain has become so severe he is having a hard time ambulating or putting weight on his left leg. He states he also experiences numbness on his left leg. Patient also states he has been having a hard time emptying his bladder completely. 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) Endocrine: Diabetes Past Surgical History: CABG (2002) Smoke: No ALCOHOL: none Drugs: None Lives: with Family Domestic Violence: Neg Review of Systems Constitutional: No: Fever, Chills, Sweats, Weakness, Malaise, Other Eyes: No: Pain, Vision change, Conjunctivae inflammation, Eyelid inflammation, Other, Redness ENT: No: Ear pain, Ear discharge, Nose pain, Nose discharge, Nose congestion, Mouth pain, Mouth swelling, Throat pain, Throat swelling, Other Respiratory: No: Cough, Dry, Shortness of breath, SOB with excertion, Wheezing, Hemoptysis, Pleuritic Pain, Sputum, Wheezing, Other Cardiovascular: No: Chest Pain, Palpitations, Orthopnea, Paroxysmal Noc. Dyspnea, Edema, Lt Headedness, Other Gastrointestinal: No: Nausea, Vomiting, Abdominal Pain, Diarrhea, Constipation, Melena, Hematochezia, Other Genitourinary: No Dysuria, No Frequency, No Incontinence, No Hematuria, No Retention, No Other Musculoskeletal: back pain (left flank), leg pain (Shooting pain down left leg with numbness and tingling); No: other, neck pain, shoulder pain, arm pain, hand pain, foot pain Skin: No: Rash, Lesions, Jaundice, Bruising, Other Neurological: No: Weakness, Numbness, Incoordination, Change in speech, Co nfusion, Seizures, Other Allergies: Coded Allergies: NO KNOWN ALLERGIES (Unverified , 05/06/24) Exam Vital Signs Vital Signs Date Time Temp Pulse Resp B/P (MAP) Pulse Ox O2 Delivery O2 Flow Rate FiO2 12/26/24 10:08 98.6 79 15 116/70 96 98.6 General Appearance: Alert, Oriented X3, Cooperative, moderate distress HEENT: PERRLA, Mucous membr. moist/pink Respiratory: Clear to auscultation, Normal air movement Cardiovascular: Regular rate, Normal S1, Normal S2, No murmurs Abdominal: Normal bowel sounds, Soft, No tenderness Extremities: No clubbing, No cyanosis, No edema, Normal pulses, Other (Shooting pain down left leg with numbness and tingling) Skin: No rashes, No breakdown, No significant lesion Neuro: Normal speech, Other (Weakness in left leg) Psych/Mental Status: Mental status NL, Mood NL Labs/Xrays Labs Test 12/26/24 13:37 12/26/24 11:00 Range/Units Urine Color Colorless Yellow Urine Clarity Clear Clear Urine pH 5.0 5.0-9.0 Urine Specific [place] 1.010 1.001-1.035 Urine Protein Negative Negative Urine Ketones Negative Negative Urine Blood Negative Negative /uL Urine Nitrite Negative Negative Urine Bilirubin Negative Negative Urine Urobilinogen Normal Negative mg/dL Urine Leukocyte Esterase Negative Negative /uL Urine RBC 1 0 - 3 /hpf Urine Microscopic WBC < 1 0-3 /HPF Urine Squamous Epithelial Cells None seen <5 /hpf Urine Bacteria None seen None Seen /hpf Urine Glucose 4+ H Normal mg/dL White Blood Count 11.3 H 4.4-10.8 10^3/uL Red Blood Count 4.81 4.5-5.90 10^6/uL Hemoglobin 15.1 13.5-17.5 g/dL Hematocrit 44.0 41.0-53.0 % Mean Corpuscular Volume 91.5 80.0-100.0 fL Mean Corpuscular Hemoglobin 31.4 28.0-32.0 pg Mean Corpuscular Hemoglobin Concent 34.3 32.0-36.0 g/dL Red Cell Distribution Width 13.1 11.8-14.3 % Platelet Count 330 140-450 10^3/uL Mean Platelet Volume 7.7 6.9-10.8 fL Neutrophils (%) (Auto) 86.6 H 37.0-80.0 % Lymphocytes (%) (Auto) 7.7 L 10.0-50.0 % Monocytes (%) (Auto) 4.2 0.0-12.0 % Eosinophils (%) (Auto) 0.7 0.0-7.0 % Basophils (%) (Auto) 0.8 0.0-2.0 % Neutrophils # (Auto) 9.8 H 1.6-8.6 10 ^3/uL Lymphocytes # (Auto) 0.9 0.4-5.4 10 ^3/uL Monocytes # (Auto) 0.5 0-1.3 10 ^3/uL Eosinophils # (Auto) 0.1 0-0.8 10 ^3/uL Basophils # (Auto) 0.1 0-0.2 10 ^3/uL Nucleated Red Blood Cells 0.0 % Sodium Level 133 L 136-145 mmol/L Potassium Level 4.0 3.5-5.1 mmol/L Chloride Level 94 L 98-107 mmol/L Carbon Dioxide Level 26 20-31 mmol/L Anion Gap 13 5-15 Blood Urea Nitrogen 25 H 9-23 mg/dL Creatinine 1.38 H 0.700-1.30 mg/dL Glomerular Filtration Rate Calc 56 >90 mL/min BUN/Creatinine Ratio 18.1 10.0-20.0 Serum Glucose 261 H 74-106 mg/dL Calcium Level 9.9 8.7-10.4 mg/dL Left HIP RADIOGRAPH. FINDINGS: There is no evidence of fracture, subluxation or dislocation. Moderate left hip osteoarthritis The bony mineralization is normal.No radiopaque foreign body is identified. IMPRESSION: 1. No evidence of acute bony injury. TECHNIQUE: Axial CT images of the left hip were obtained without IV contrast. FINDINGS: No evidence of acute fracture. Moderate joint space narrowing in both hips. Focal area of sclerosis in the left femoral head / neck junction measuring up to 7.5 mm, likely bone island. There is a small to moderate joint effusion in the left hip. Moderate sclerosis adjacent to the left sacroiliac joint. Partially visualized Moderate arthritic changes at the pubic symphysis. Enlarged Prostate partially visualized. Mild circumferential thickening of the bladder wall. Moderate stool in the visualized portions of the colon. Moderate to marked arterial calcification. IMPRESSION: 1. No acute fracture visualized. Correlate with clinical findings. If there remains clinical suspicion for acute fracture, MRI could be considered. 2. Small to moderate left hip joint effusion. 3. Arthritic changes and Nonacute findings as described above. SEPSIS Sepsis Screen Date sepsis recognized/suspect: Dec 26, 2024 Time Sepsis recognized/suspect: 1009 Recent Procedure: No On Antibiotic Therapy: No Respiratory Rate >20: No Heart Rate >90: No Temp<36 C (96.8 F) or >38.3 C: No SBP <90 or MAP <65 mmHG: No New Acute Mental Status Change: No Is the patient on CPAP, BIPAP,: No Physician Orders Bladder Scan (12/26/24 ) L Hip Complete Xray (12/26/24 11:23) Ct L Hip With Out Contrast (12/26/24 13:29) Admit (12/26/24 15:25) Code Status (12/26/24 15:25) Hydrocodone-Acet 5/325mg Tab ([place] 5/32 (12/26/24 15:30) Ondansetron Hcl (Zofran) (12/26/24 15:30) Docusate Sodium Capsule (Colace Capsule) (12/26/24 15:30) Fall Risk Precautions In Place QSHIFT (12/26/24 15:25) Complete Blood Count (12/27/24 04:00) Comprehensive Metabolic Panel (12/27/24 04:00) Cardiac Diet-2gna,Lofat,Lochol (12/26/24 Dinner) Pt Request For Service (12/26/24 15:25) Condition: Serious (12/26/24 15:25) Acetaminophen Tablet (Tylenol Tablet) (12/26/24 15:30) Vital Signs Date Time Temp Pulse Resp B/P (MAP) Pulse Ox O2 Delivery O2 Flow Rate FiO2 12/26/24 10:08 98.6 79 15 116/70 96 98.6 Laboratory Tests Test 12/26/24 11:00 White Blood Count 11.3 10^3/uL (4.4-10.8) H Medications Medications Dose Ordered Sig/Tara Route Start Time Stop Time Status Last Admin Dose Admin Acetaminophen/ Hydrocodone Bitart 1 tab ONCE ONCE PO 12/26/24 13:30 12/26/24 13:37 DC 12/26/24 14:25 1 TAB Assessment/Plan Assessment/Plan Assessment: Kidney lesion, Intractable back pain, Left leg paraesthesia, Diabetes, Coronary artery disease, Hyperlipidemia, Plan: Admit to Med-Surg, MRI of kidney, Consider urology consult depending on results of MRI, Pain management, Physical therapy evaluation, Home medications reconciled, Plan discussed with: Patient, Son My Orders Orders - DOMINGA REVELES Procedure Category Date Status Time Admit ADMIT 12/26/24 Verified 15:25 Code Status CODE 12/26/24 Verified 15:25 Hydrocodone-Acet PHA 12/26/24 Verified 5/325mg Tab ([place] 15:30 Ondansetron Hcl PHA 12/26/24 Verified (Zofran) 15:30 Docusate Sodium PHA 12/26/24 Verified Capsule (Colace 15:30 Fall Risk Precautions LAITH 12/26/[address] 15:25 Complete Blood Count LAB 12/27/24 Verified 04:00 Comprehensive LAB 12/27/24 Verified Metabolic Panel 04:00 Cardiac DIET 12/26/24 Verified Diet-2gna,Lofat,Lochol Dinner Pt Request For Service PT 12/26/24 Verified 15:25 Condition: Serious LAITH 12/26/24 Verified 15:25 Acetaminophen Tablet PHA 12/26/24 Verified (Tylenol Tablet) 15:30 Date of Service: Dec 26, 2024 Billing Provider: DOMINGA REVELES Common Visit Codes: [id number] INP/OBS CARE (MOD) DOMINGA REVELES Dec 26, 2024 16:10
[2024-12-26] MEDS ORDERED: DEXTROSE (50%) 50ML SYRG IV PRN (16:45)
[2024-12-26] MEDS: InsuLIN REG 1unit/0.01ml Soln (100units/ml) SC SCH ×2 (17:46→21:13)
[2024-12-26] MEDS: ACCU-CHEK COMFORT CURVE STRIP VI SCH (17:49)
[2024-12-26] MEDS: SODIUM CHLORIDE 0.9% 1,000 ML IV ONE ×2 (20:17→22:16)
[2024-12-26] MEDS: HYDROcodone-ACET 5/325MG TAB PO PRN (20:44)
[2024-12-26 21:00] VITALS: BP 121/63; PULSE 70; RESP 17; TEMP 98.4; O2SAT 95
[2024-12-26] MEDS: ATORVASTATIN 20 MG TAB PO SCH (21:11)
[2024-12-26 21:22] VITALS: BP 121/63; PULSE 70; RESP 17; TEMP 98.4; O2SAT 95
[2024-12-27] VITALS (8 sets, daily range): BP systolic 99–128; BP diastolic 51–69; PULSE 62–84; RESP 14–19; TEMP 97.6–98.2; O2SAT 95–98
[2024-12-27 06:02] LABS: Hematocrit 37.2 % (41.0-53.0); Hemoglobin 12.9 g/dL (13.5-17.5); Mean Corpuscular Hemoglobin 31.3 pg (28.0-32.0); Mean Corpuscular Volume 90.4 fL (80.0-100.0); Nucleated Red Blood Cells % 0.0 %
[2024-12-27 06:39] LABS: Alanine Aminotransferase 15 U/L (7-40); Anion Gap 10 (5-15); BUN/Creatinine Ratio 26.7 (10.0-20.0); Calcium 8.8 mg/dL (8.7-10.4); Carbon Dioxide 25 mmol/L (20-31); Chloride 103 mmol/L (98-107); Glucose 85 mg/dL (74-106); Potassium 3.7 mmol/L (3.5-5.1); Sodium 138 mmol/L (136-145); Total Protein 6.7 g/dL (5.7-8.2)
[2024-12-27 06:40] LABS: Albumin 3.8 g/dL (3.2-4.8); Bilirubin, Total 0.9 mg/dL (0.2-1.0)
[2024-12-27 06:45] LABS: Alkaline Phosphatase 138 U/L (46-116); Blood Urea Nitrogen 23 mg/dL (9-23)
[2024-12-27] MEDS: GADOTERATE MEG 10 MMOL/20ml INJ (0.5MMOL/ml) IV ONE (08:09)
[2024-12-27] MEDS: TAMSULOSIN HYDROCHLORIDE 0.4 MG CAP PO SCH (09:40)
[2024-12-27] MEDS: FUROSEMIDE 20 MG TAB PO SCH (09:46)
[2024-12-27] MEDS: glipiZIDE 5 MG TAB PO SCH (09:46)
[2024-12-27] MEDS: METOPROLOL TARTRATE 50 MG TAB PO SCH (09:47)
[2024-12-27] MEDS: SPIRONOLACTONE 25 MG TAB PO SCH (09:47)
--- NOTE | 2024-12-27 10:01 | DVH ---
MRI Abdomen, without IV Contrast Exam Date: 12/27/2024 08:01 AM Comparison: CT CT AB PEL WO CON-NO ORAL OR IV on DOS: 12/11/24 History: RENAL MASS PT REFUSED CONTRAST Technique: Multisequence multiplanar MRI images were obtained of the abomen. Findings: Liver: The liver is normal in size without focal lesions. Normal liver contour. Spleen: Unremarkable. Pancreas: The pancreas is normal in appearance without focal lesions. Gallbladder and ducts: Gallbladder is normal in appearance. The cystic duct, right and left hepatic ducts, common hepatic duct, and common bile ducts are unremarkable. The pancreatic duct is within normal limits. Adrenal glands: Unremarkable. Kidneys: Right kidney is unremarkable. Left renal cyst midpole measures 1.5 cm. Indeterminate mass in the anterior left upper pole measures 4.3 cm. Visualized bowel: Grossly unremarkable. Vasculature: Unremarkable. Lymphadenopathy: No evidence for lymphadenopathy. Ascites: Absent. Musculoskeletal: Bone marrow signal is normal. Median sternotomy. IMPRESSION: Indeterminate anterior left upper pole renal mass measures 4.3 cm. There is suggestion of restricted diffusion although this lesion is incompletely characterized without intravenous contrast administration. Renal cell carcinoma remains within differential considerations. Ultrasound and/or multiphasic CT or MRI recommended for definitive characterization.
--- NOTE | 2024-12-27 11:25 | DVHPN2 ---
Reviewed: Care Plan, H&P, Labs, Medications, Previous Orders, Radiology Changes from previous H/P or p: No Changes Eyes: No Pain, No Vision change, No Conjunctivae inflammation, No Eyelid inflammation, No Other, No Redness ENT: No Ear pain, No Ear discharge, No Nose pain, No Nose discharge, No Nose congestion, No Mouth pain, No Mouth swelling, No Throat pain, No Throat swelling, No Other Cardiovascular: No Chest Pain, No Palpitations, No Orthopnea, No Paroxysmal Noc. Dyspnea, No Edema, No Lt Headedness, No Other Respiratory: No Cough, No Dry, No Shortness of breath, No SOB with excertion, No Wheezing, No Hemoptysis, No Pleuritic Pain, No Sputum, No Other Gastrointestinal: No Nausea, No Vomiting, No Abdominal Pain, No Diarrhea, No Constipation, No Melena, No Hematochezia, No Other Genitourinary: No Dysuria, No Frequency, No Incontinence, No Hematuria, No Retention, No Other Musculoskeletal: No other, No neck pain, No shoulder pain, No arm pain; back pain (left flank); No hand pain; leg pain (Shooting pain down left leg with numbness and tingling); No foot pain Skin: No Rash, No Lesions, No Jaundice, No Bruising, No Other Objective Vitals Vital Signs Date Time Temp Pulse Resp B/P (MAP) Pulse Ox O2 Delivery O2 Flow Rate FiO2 12/27/24 09:47 75 121/67 12/27/24 09:00 97.6 18 97 97.6 12/26/24 22:27 Room Air* 0 21 Intake/Output Intake and Output 12/27/24 07:00 Intake Total 700 ml Output Total 1200 ml Balance -500 ml Intake Oral 700 ml Output Urine Total 1200 ml Medications Current Medications Medications Dose Ordered Sig/Tara Route Start Time Stop Time Status Last Admin Dose Admin Acetaminophen/ Hydrocodone Bitart 1 tab Q4HP PRN PO 12/26/24 15:30 12/27/24 02:48 1 TAB Ondansetron HCl 4 mg Q4HP PRN IV 12/26/24 15:30 Docusate Sodium 100 mg BIDPRN PRN PO 12/26/24 15:30 Acetaminophen 650 mg Q6HP PRN PO 12/26/24 15:30 Diagnostic Test (Pha) 1 strip ACHS 12/26/24 17:00 12/27/24 06:18 1 STRIP Insulin Human Regular HS SC 12/26/24 22:00 12/26/24 21:13 3 UNITS Insulin Human Regular AC SC 12/26/24 17:00 Dextrose 50 ml UD PRN IV 12/26/24 16:45 Furosemide 20 mg DAILY PO 12/27/24 10:00 12/27/24 09:46 20 MG Glipizide 5 mg DAILY PO 12/27/24 10:00 12/27/24 09:46 5 MG Metoprolol Tartrate 50 mg DAILY PO 12/27/24 10:00 12/27/24 09:47 50 MG Spironolactone 25 mg DAILY PO 12/27/24 10:00 12/27/24 09:47 25 MG Tamsulosin HCl 0.4 mg DAILY PO 12/27/24 10:00 12/27/24 09:40 0.4 MG Aspirin 81 mg DAILY PO 12/27/24 10:00 12/27/24 09:46 81 MG Atorvastatin Calcium 80 mg HS PO 12/26/24 22:00 12/26/24 21:11 80 MG Patient Own Medication 10 mg DAILY PO 12/27/24 10:00 Laboratory Results Laboratory Tests 12/27/24 04:56 Chemistry Test 12/27/24 04:56 Albumin 3.8 g/dL (3.2-4.8) Calcium Level 8.8 mg/dL (8.7-10.4) Total Protein 6.7 g/dL (5.7-8.2) LFT Test 12/27/24 04:56 Alanine Aminotransferase (ALT) 15 U/L (7-40) Alkaline Phosphatase 138 U/L (46-116) H Aspartate Amino Transferase (AST) 18 U/L (13-40) Total Bilirubin 0.9 mg/dL (0.2-1.0) Urinalysis Test 12/26/24 13:37 Urine Color Colorless (Yellow) Urine Clarity Clear (Clear) Urine pH 5.0 (5.0-9.0) Urine Specific [place] 1.010 (1.001-1.035) Urine Protein Negative (Negative) Urine Ketones Negative (Negative) Urine Blood Negative /uL (Negative) Urine Nitrite Negative (Negative) Urine Bilirubin Negative (Negative) Urine Urobilinogen Normal mg/dL (Negative) Urine Leukocyte Esterase Negative /uL (Negative) Urine RBC 1 /hpf (0 - 3) Urine Microscopic WBC < 1 /HPF (0-3) Urine Squamous Epithelial Cells None seen /hpf (<5) Urine Bacteria None seen /hpf (None Seen) Urine Glucose 4+ mg/dL (Normal) H Labs and/or images reviewed: Labs reviewed by me, Image(s) reviewed by me Assessment/Plan Assessment/Plan Acute left flank pain [place] 4.3 cm left kidney mass: Urology consult for Dr. Mccabe Severe left leg pain: CT LS spine rule out narrow compression Uncontrolled diabetes: Insulin sliding scale History of coronary artery disease status post CABG and stents Hypertension Hypercholesterolemia History of CVA [address] left hip negative for any fracture Acute urinary retention: Consult for Urology Dr. Mccabe History of osteoporosis Time spent 66 minutes Advanced care planning time 20 minutes Patient is full code Plan discussed with: Patient My Orders Orders - LEANNA WALLACE MD Procedure Category Date Status Time Ls Spine Wo Contrast CT 12/27/24 Logged 11:20 * Urology Consult CONS 12/27/24 Verified 11:21 Date of Service: Dec 27, 2024 Billing Provider: LEANNA WALLACE MD Common Visit Codes: [id number] CARE 30-74 MIN LEANNA WALLACE MD Dec 27, 2024 11:25
--- NOTE | 2024-12-27 12:26 | DVH ---
CT LS SPINE WO CONTRAST Indication: Left leg pain and numbness EXAM DATE: 12/27/2024 11:36 AM COMPARISON: None TECHNIQUE: CT of the lumbar spine without intravenous contrast. RADIATION DOSE: CTDIvol: 11.52 mGy, DLP: 345.54 mGy*cm FINDINGS: The lumbar vertebral body heights are maintained. Avgc-yh-nrvczzen multilevel disc space narrowing. Mild lumbar dextrocurvature. Wcem-eo-hamalymr facet hypertrophic changes. There is tipi-fk-bacqqgrg neural foraminal stenosis at L3-4, L4-5 and L5-S1.m 4 mm disc protrusion L5. Thecal sac measures 7 mm at this level consistent with moderate spinal canal stenosis. Aortic atherosclerotic disease.m There is a left renal upper pole mass measuring 3.3 cm IMPRESSION: Left renal upper pole mass measuring 3.3 cm, highly concerning for renal neoplasm/ renal cell carcinoma as previously described. Recommend MRI abdomen with and without contrast and urology consultation. Nhpr-jf-[id number] lumbar degenerative disc disease. Moderate spinal canal stenosis L4-5. Mcxh-kw-dwplokmj multilevel neural foraminal stenosis. MRI lumbar spine recommended for further characterization.
--- NOTE | 2024-12-27 13:23 | DVH ---
INDICATION: renal mass TECHNIQUE: Multiple real-time sonographic images of the kidneys and bladder were obtained. COMPARISON: None FINDINGS: The right kidney measures 9 cm in length, which is normal in size. There is normal echogenicity of the right kidney. No hydronephrosis. The left kidney measures 11 cm in length, which is normal in size. There is normal echogenicity of the left kidney. No hydronephrosis. 4 cm left lower pole renal mass. IMPRESSION: 4 cm left lower pole renal mass. Multiphasic CT or MRI recommended
--- NOTE | 2024-12-27 15:24 | DVHINCON2 ---
Date of service: Dec 27, 2024 History of Present Illness History Source: RN Notes, Notes, Old Records HPI 69-year-old male with diabetes, CAD s/p CABG and stents, and chronic lumbar radiculopathy, presenting with worsening left flank pain, difficulty ambulating, and new left leg numbness and weakness. He also reports difficulty emptying his bladder. A prior non-contrast CT showed an indeterminate left renal lesion. During this admission, renal ultrasound demonstrates a solid left renal mass measuring approximately 4 cm. MRI abdomen performed without gadolinium confirms a 4.3 cm anterior upper pole left renal mass with restricted diffusion. The lesion is incompletely characterized without contrast. A 1.5 cm simple cyst is also seen. Right kidney, adrenals, and bone marrow signal are unremarkable. Renal cell carcinoma remains within the differential. Home Meds Active Scripts Gabapentin (Gabapentin) 300 Mg Cap, 1 CAP PO TID PRN for 10 Days, #60 CAP 5 Refills Prov:HARMEET PAGAN MD 05/06/24 Reported Medications Dapagliflozin Propanediol (Farxiga) 10 Mg Tab, 10 MG PO DAILY, TAB 12/26/24 Glipizide (Glipizide) 5 Mg Tab, 1 TAB PO DAILY, #60 TAB 3 Refills 12/26/24 Spironolactone (Spironolactone) 25 Mg Tab, 1 TAB PO DAILY, #90 TAB 1 Refill 12/26/24 Furosemide (Lasix) 20 Mg Tb, 1 TAB PO DAILY, #90 TAB 1 Refill 12/26/24 Aspirin (Aspirin) 81 Mg Chw, 81 MG PO DAILY, TAB.CHEW 12/26/24 Metoprolol Tartrate (Metoprolol Tartrate) 50 Mg Tab, 50 MG PO DAILY, TAB 12/26/24 Metformin Hydrochloride (Metformin Hcl) 1,000 Mg Tab, 1 TAB PO BID, #60 TAB 5 Refills 12/26/24 Docusate Sodium (Colace) 100 Mg Cap, 1 CAP PO BID PRN, #30 CAP 12/26/24 Tamsulosin Hcl (Flomax) 0.4 Mg Cap, 1 CAP PO DAILY, #30 CAP 11 Refills 12/26/24 Atorvastatin Calcium (ATORVASTATIN CALCIUM) 80 Mg Tab, 1 TAB PO HS 12/26/24 Past Medical History Patient Family History: Cardiovascular disease G8 MOTHER G8 FATHER Diabetes mellitus G8 MOTHER Hypertension H&P Exam Vital Signs Vital Signs Date Time Temp Pulse Resp B/P (MAP) Pulse Ox O2 Delivery O2 Flow Rate FiO2 12/27/24 13:00 98.1 62 16 99/67 (78) 97 98.1 12/26/24 22:27 Room Air* 0 21 Labs/Xrays [facility] [id number] [facility] [address] Ph: [phone] DIAGNOSTIC IMAGING Diagnostic Imaging Report : [id number] Signed PATIENT: LUKE LAU ACCT: [id number] UNIT: [id number] : 1955 LOC: ER ROOM / BED: / AGE / SEX: 69 / M ADM STATUS: REG ER SERVICE 1056 ORDERING PHYSICIAN: JUDY GODOY NP PROCEDURE(s): ABPL - CT AB PEL WO CON-NO ORAL OR IV REASON: Ab pain ORDER NUMBER(s): [id number], ACCESSION NUMBER(s): [id number] EXAM: CT CT AB PEL WO CON-NO ORAL OR IV INDICATION: Ab pain TECHNIQUE: Volumetric multidetector CT images of the abdomen and pelvis were obtained without contrast. All CT scans at this facility use dose modulation, iterative reconstruction, and/or weight based dosing when appropriate to reduce radiation dose to as low as reasonably achievable. COMPARISON: CT CERVICAL WITHOUT CONTRAST on DOS: 05/06/24 FINDINGS: [LOWER CHEST]: The partially visualized lung bases are clear without a pleural effusion. The cardiac size is normal without pericardial effusion. coronary artery calcifications. Postoperative changes to the heart. Small area of deposition along the left ventricular apex compatible with a prior infarct. [LIVER]: Normal hepatic size without suspicious focal lesion. [GALLBLADDER AND BILIARY TREE]: Absent [SPLEEN]: Unremarkable. [PANCREAS]: Unremarkable. [ADRENAL GLANDS]: Unremarkable [KIDNEYS]: No hydronephrosis. No nephroureterolithiasis. Enhancing possibler lesion measuring 8.5 by 3 cm in the left anterior superior kidney. Benign- appearing cysts of the left posterior kidney. [BLADDER]: Unremarkable for the degree distention. [REPRODUCTIVE ORGANS]: Unremarkable. [BOWEL/MESENTERY]: Stomach is normal. No CT evidence of bowel obstruction. mild stool burden. [ASCITES]: Absent [LYMPHADENOPATHY]: No pathologically enlarged lymph nodes by CT size criteria [VASCULATURE]: No aneurysmal dilatation. [ABDOMINAL WALL]: Unremarkable. [MUSCULOSKELETAL]: No acute fracture or aggressive focal osseous lesion. Multifocal degenerative change of the visualized spine. prior healed low lateral rib fractures. IMPRESSION: 1. No CT evidence of an acute abdominal/pelvic process. 2. Mild stool burden. Correlate for constipation. 3. Enhancing lesion of the left anterior superior kidney. 4. Consider nonemergent CT versus MRI kidney protocol. ATED BY: JASON LOPEZ MD DICTATED DATE/TIME: 12/11/241317 SIGNED BY: JASON LOPEZ MD SIGNED DATE/TIME: 12/11/241317 CC: [place] [address] Ph: [phone] DIAGNOSTIC IMAGING Diagnostic Imaging Report : [id number] Signed PATIENT: LUKE LAU ACCT: [id number] UNIT: [id number] : 1955 LOC: OVERFLOW ROOM / BED: [address] [place] [address] AGE / SEX: 69 / M ADM STATUS: ADM IN SERVICE 1214 ORDERING PHYSICIAN: MONICO YOO NP PROCEDURE(s): KIDUS - KIDNEY REASON: renal mass ORDER NUMBER(s): [id number], ACCESSION NUMBER(s): [id number] INDICATION: renal mass TECHNIQUE: Multiple real-time sonographic images of the kidneys and bladder were obtained. COMPARISON: None FINDINGS: The right kidney measures 9 cm in length, which is normal in size. There is normal echogenicity of the right kidney. No hydronephrosis. The left kidney measures 11 cm in length, which is normal in size. There is normal echogenicity of the left kidney. No hydronephrosis. 4 cm left lower pole renal mass. IMPRESSION: 4 cm left lower pole renal mass. Multiphasic CT or MRI recommended [place] [address] Ph: [phone] DIAGNOSTIC IMAGING Diagnostic Imaging Report : [id number] Signed PATIENT: LUKE LAU ACCT: [id number] UNIT: [id number] : 1955 LOC: OVERFLOW ROOM / BED: [facility] / A AGE / SEX: 69 / M ADM STATUS: ADM IN SERVICE 1632 ORDERING PHYSICIAN: DOMINGA REVELES PROCEDURE(s): MABL - MRI ABDOMEN NO CONTRAST REASON: RENAL MASS PT REFUSED CONTRAST ORDER NUMBER(s): [id number], ACCESSION NUMBER(s): [id number] MRI Abdomen, without IV Contrast Exam Date: 12/27/2024 08:01 AM Comparison: CT CT AB PEL WO CON-NO ORAL OR IV on DOS: 12/11/24 History: RENAL MASS PT REFUSED CONTRAST Technique: Multisequence multiplanar MRI images were obtained of the abomen. Findings: Liver: The liver is normal in size without focal lesions. Normal liver contour. Spleen: Unremarkable. Pancreas: The pancreas is normal in appearance without focal lesions. Gallbladder and ducts: Gallbladder is normal in appearance. The cystic duct, right and left hepatic ducts, common hepatic duct, and common bile ducts are unremarkable. The pancreatic duct is within normal limits. Adrenal glands: Unremarkable. Kidneys: Right kidney is unremarkable. Left renal cyst midpole measures 1.5 cm. Indeterminate mass in the anterior left upper pole measures 4.3 cm. Visualized bowel: Grossly unremarkable. Vasculature: Unremarkable. Lymphadenopathy: No evidence for lymphadenopathy. Ascites: Absent. Musculoskeletal: Bone marrow signal is normal. Median sternotomy. IMPRESSION: Indeterminate anterior left upper pole renal mass measures 4.3 cm. There is suggestion of restricted diffusion although this lesion is incompletely characterized without intravenous contrast administration. Renal cell carcinoma remains within differential considerations. Ultrasound and/or multiphasic CT or MRI recommended for definitive characterization. ATED BY: SHEKHAR SERRATO MD DICTATED DATE/TIME: 12/27/24958 SIGNED BY: SHEKHAR SERRATO MD SIGNED DATE/TIME: 12/27/24958 CC: Labs Test 12/27/24 12:55 12/27/24 04:56 12/26/24 13:37 Range/Units POC Glucose 90 70-106 mg/dl White Blood Count 8.8 4.4-10.8 10^3/uL Red Blood Count 4.11 L 4.5-5.90 10^6/uL Hemoglobin 12.9 L 13.5-17.5 g/dL Hematocrit 37.2 #L 41.0-53.0 % Mean Corpuscular Volume 90.4 80.0-100.0 fL Mean Corpuscular Hemoglobin 31.3 28.0-32.0 pg Mean Corpuscular Hemoglobin Concent 34.6 32.0-36.0 g/dL Red Cell Distribution Width 12.9 11.8-14.3 % Platelet Count 279 140-450 10^3/uL Mean Platelet Volume 8.1 6.9-10.8 fL Neutrophils (%) (Auto) 70.0 37.0-80.0 % Lymphocytes (%) (Auto) 19.7 10.0-50.0 % Monocytes (%) (Auto) 8.4 0.0-12.0 % Eosinophils (%) (Auto) 1.3 0.0-7.0 % Basophils (%) (Auto) 0.6 0.0-2.0 % Neutrophils # (Auto) 6.2 1.6-8.6 10 ^3/uL Lymphocytes # (Auto) 1.7 0.4-5.4 10 ^3/uL Monocytes # (Auto) 0.7 0-1.3 10 ^3/uL Eosinophils # (Auto) 0.1 0-0.8 10 ^3/uL Basophils # (Auto) 0.1 0-0.2 10 ^3/uL Nucleated Red Blood Cells 0.0 % Sodium Level 138 # 136-145 mmol/L Potassium Level 3.7 3.5-5.1 mmol/L Chloride Level 103 98-107 mmol/L Carbon Dioxide Level 25 20-31 mmol/L Anion Gap 10 5-15 Blood Urea Nitrogen 23 9-23 mg/dL Creatinine 0.86 0.700-1.30 mg/dL Glomerular Filtration Rate Calc 95 >90 mL/min BUN/Creatinine Ratio 26.7 H 10.0-20.0 Serum Glucose 85 # 74-106 mg/dL Calcium Level 8.8 8.7-10.4 mg/dL Total Bilirubin 0.9 0.2-1.0 mg/dL Aspartate Amino Transferase (AST) 18 13-40 U/L Alanine Aminotransferase (ALT) 15 7-40 U/L Alkaline Phosphatase 138 H 46-116 U/L Total Protein 6.7 5.7-8.2 g/dL Albumin 3.8 3.2-4.8 g/dL Urine Color Colorless Yellow Urine Clarity Clear Clear Urine pH 5.0 5.0-9.0 Urine Specific [place] 1.010 1.001-1.035 Urine Protein Negative Negative Urine Ketones Negative Negative Urine Blood Negative Negative /uL Urine Nitrite Negative Negative Urine Bilirubin Negative Negative Urine Urobilinogen Normal Negative mg/dL Urine Leukocyte Esterase Negative Negative /uL Urine RBC 1 0 - 3 /hpf Urine Microscopic WBC < 1 0-3 /HPF Urine Squamous Epithelial Cells None seen <5 /hpf Urine Bacteria None seen None Seen /hpf Urine Glucose 4+ H Normal mg/dL Assessment/Plan Problem List: (1) Type 2 diabetes mellitus with hyperglycemia (2) Left rib fracture (3) Abdominal pain (4) Hip fracture (5) Lumbar radiculopathy (6) Back pain (7) Lumbar sprain (8) Musculoskeletal pain (9) Kidney lesion 2' Diagnosis/Co-morbidities The patients neurologic symptoms are not explained by the renal mass and are more consistent with lumbar spine pathology. Impression: Solid 4 cm left renal mass, concerning for a clinical T1a renal neoplasm. Plan Recommend multiphasic CT abdomen/pelvis with iodinated contrast for definitive characterization and staging. If contrast is declined, consider percutaneous renal mass biopsy via IR service. Plan discussed with: MONICO Black NP Dec 27, 2024 15:24
[2024-12-28] VITALS (8 sets, daily range): BP systolic 115–134; BP diastolic 69–77; PULSE 61–83; RESP 16–19; TEMP 96.9–98.3; O2SAT 95–98
--- NOTE | 2024-12-28 08:40 | DVHPN2 ---
Reviewed: Care Plan, H&P, Labs, Medications, Previous Orders, Radiology Changes from previous H/P or p: No Changes Eyes: No Pain, No Vision change, No Conjunctivae inflammation, No Eyelid inflammation, No Other, No Redness ENT: No Ear pain, No Ear discharge, No Nose pain, No Nose discharge, No Nose congestion, No Mouth pain, No Mouth swelling, No Throat pain, No Throat swelling, No Other Cardiovascular: No Chest Pain, No Palpitations, No Orthopnea, No Paroxysmal Noc. Dyspnea, No Edema, No Lt Headedness, No Other Respiratory: No Cough, No Dry, No Shortness of breath, No SOB with excertion, No Wheezing, No Hemoptysis, No Pleuritic Pain, No Sputum, No Other Gastrointestinal: No Nausea, No Vomiting, No Abdominal Pain, No Diarrhea, No Constipation, No Melena, No Hematochezia, No Other Genitourinary: No Dysuria, No Frequency, No Incontinence, No Hematuria, No Retention, No Other Musculoskeletal: No other, No neck pain, No shoulder pain, No arm pain; back pain (left flank); No hand pain; leg pain (Shooting pain down left leg with numbness and tingling); No foot pain Skin: No Rash, No Lesions, No Jaundice, No Bruising, No Other Objective Vitals Vital Signs Date Time Temp Pulse Resp B/P (MAP) Pulse Ox O2 Delivery O2 Flow Rate FiO2 12/28/24 05:00 97.7 83 19 119/75 (90) 98 97.7 12/27/24 20:00 Room Air* 0 21 Intake/Output Intake and Output 12/28/24 07:00 Intake Total 480 ml Output Total 1800 ml Balance -1320 ml Intake Oral 480 ml Output Urine Total 1800 ml # Voids 2 # Bowel Movements 1 Medications Current Medications Medications Dose Ordered Sig/Tara Route Start Time Stop Time Status Last Admin Dose Admin Acetaminophen/ Hydrocodone Bitart 1 tab Q4HP PRN PO 12/26/24 15:30 12/28/24 04:27 1 TAB Ondansetron HCl 4 mg Q4HP PRN IV 12/26/24 15:30 Docusate Sodium 100 mg BIDPRN PRN PO 12/26/24 15:30 Acetaminophen 650 mg Q6HP PRN PO 12/26/24 15:30 Diagnostic Test (Pha) 1 strip ACHS 12/26/24 17:00 12/28/24 06:05 1 STRIP Insulin Human Regular HS SC 12/26/24 22:00 12/27/24 21:11 3 UNITS Insulin Human Regular AC SC 12/26/24 17:00 12/27/24 17:48 3 UNITS Dextrose 50 ml UD PRN IV 12/26/24 16:45 Furosemide 20 mg DAILY PO 12/27/24 10:00 12/27/24 09:46 20 MG Glipizide 5 mg DAILY PO 12/27/24 10:00 12/27/24 09:46 5 MG Metoprolol Tartrate 50 mg DAILY PO 12/27/24 10:00 12/27/24 09:47 50 MG Spironolactone 25 mg DAILY PO 12/27/24 10:00 12/27/24 09:47 25 MG Tamsulosin HCl 0.4 mg DAILY PO 12/27/24 10:00 12/27/24 09:40 0.4 MG Aspirin 81 mg DAILY PO 12/27/24 10:00 12/27/24 09:46 81 MG Atorvastatin Calcium 80 mg HS PO 12/26/24 22:00 12/27/24 21:12 80 MG Patient Own Medication 10 mg DAILY PO 12/27/24 10:00 Laboratory Results Laboratory Tests 12/27/24 04:56 Urinalysis Test 12/26/24 13:37 Urine Color Colorless (Yellow) Urine Clarity Clear (Clear) Urine pH 5.0 (5.0-9.0) Urine Specific [place] 1.010 (1.001-1.035) Urine Protein Negative (Negative) Urine Ketones Negative (Negative) Urine Blood Negative /uL (Negative) Urine Nitrite Negative (Negative) Urine Bilirubin Negative (Negative) Urine Urobilinogen Normal mg/dL (Negative) Urine Leukocyte Esterase Negative /uL (Negative) Urine RBC 1 /hpf (0 - 3) Urine Microscopic WBC < 1 /HPF (0-3) Urine Squamous Epithelial Cells None seen /hpf (<5) Urine Bacteria None seen /hpf (None Seen) Urine Glucose 4+ mg/dL (Normal) H Labs and/or images reviewed: Labs reviewed by me, Image(s) reviewed by me Assessment/Plan Assessment/Plan Acute left flank pain [place] 4.3 cm left kidney mass: Urology consult for Dr. Mccabe appreciated recommended CT abdomen pelvis with IV contrast, patient is allergic to the dye. Consult placed for the interventional radiologist for the biopsy Severe left leg pain: CT LS spine shows spinal canal stenosis at L4-5 and severe DJD changes, MRI of the L-spine ordered consult for spine surgeon Dr. Chambers Uncontrolled diabetes: Insulin sliding scale History of coronary artery disease status post CABG and stents Hypertension Hypercholesterolemia History of CVA [address] left hip negative for any fracture Acute urinary retention: Consult for Urology Dr. Mccabe appreciated History of osteoporosis Time spent 66 minutes Advanced care planning time 20 minutes Patient is full code Daughter Rufina [phone] at bedside Plan discussed with: Patient My Orders Orders - LEANNA WALLACE MD Procedure Category Date Status Time Ls Spine Wo Contrast CT 12/27/24 Resulted 11:20 * Urology Consult CONS 12/27/24 Transmitted 11:21 Date of Service: Dec 28, 2024 Billing Provider: LEANNA WALLACE MD Common Visit Codes: [id number] CARE 30-74 MIN LEANNA WALLACE MD Dec 28, 2024 08:40
--- NOTE | 2024-12-28 15:15 | DVH ---
MRI OF THE LUMBAR SPINE, NONCONTRAST REASON FOR EXAM: Lumbar radiculopathy TECHNIQUE: The patient was screened for magnet safety prior to scanning. Sagittal T1-weighted, fast spine echo, multiecho T2- weighted, and fast spin echo T2-weighted sequences with fat saturation were obtained. Axial fast spin echo multiecho T2- weighted sequences were obtained. FINDINGS: There is a heterogeneous appearance of the bone marrow. There is no acute displaced fracture. There is minimal loss of intervertebral disc height. The conus terminates at L1 and is unremarkable in appearance. There is a left renal cyst. The paraspinal soft tissues are unremarkable. At T12-L1, there is no significant spinal canal or neural foraminal stenosis. At L1-2, there is no significant spinal canal or neural foraminal stenosis. At L2-3, a broad-based disc protrusion effaces the thecal sac. There is mild facet arthropathy and ligamentum flavum hypertrophy. There is narrowing of the lateral recesses. There is no significant spinal canal or neural foraminal stenosis. At L3-4, a broad-based disc protrusion effaces the thecal sac and narrows the lateral recesses, with possible contact of the exiting nerve roots. There is mild facet arthropathy ligamentum flavum hypertrophy. There is no significant spinal canal or neural foraminal stenosis. At L4-5, a broad-based disc protrusion effaces the thecal sac. There is facet arthropathy and ligamentum flavum hypertrophy. There is narrowing of the lateral recesses. There is no significant spinal canal or neural foraminal stenosis. At L5-S1, mild facet arthropathy contributes to mild bilateral neural foraminal stenosis. IMPRESSION: 1. Mild degenerative changes of the lumbar spine as detailed. 2. Nonspecific heterogeneous appearance of the bone marrow.
[2024-12-29] VITALS (7 sets, daily range): BP systolic 113–129; BP diastolic 65–78; PULSE 59–82; RESP 16–18; TEMP 97.2–98; O2SAT 97–99
--- NOTE | 2024-12-29 07:54 | DVHPN2 ---
Reviewed: Care Plan, H&P, Labs, Medications, Previous Orders, Radiology Changes from previous H/P or p: No Changes Eyes: No Pain, No Vision change, No Conjunctivae inflammation, No Eyelid inflammation, No Other, No Redness ENT: No Ear pain, No Ear discharge, No Nose pain, No Nose discharge, No Nose congestion, No Mouth pain, No Mouth swelling, No Throat pain, No Throat swelling, No Other Cardiovascular: No Chest Pain, No Palpitations, No Orthopnea, No Paroxysmal Noc. Dyspnea, No Edema, No Lt Headedness, No Other Respiratory: No Cough, No Dry, No Shortness of breath, No SOB with excertion, No Wheezing, No Hemoptysis, No Pleuritic Pain, No Sputum, No Other Gastrointestinal: No Nausea, No Vomiting, No Abdominal Pain, No Diarrhea, No Constipation, No Melena, No Hematochezia, No Other Genitourinary: No Dysuria, No Frequency, No Incontinence, No Hematuria, No Retention, No Other Musculoskeletal: No other, No neck pain, No shoulder pain, No arm pain; back pain (left flank); No hand pain; leg pain (Shooting pain down left leg with numbness and tingling); No foot pain Skin: No Rash, No Lesions, No Jaundice, No Bruising, No Other Objective Vitals Vital Signs Date Time Temp Pulse Resp B/P (MAP) Pulse Ox O2 Delivery O2 Flow Rate FiO2 12/29/24 05:00 97.9 68 17 122/73 (89) 97 97.9 12/28/24 20:00 Room Air* 0 21 Intake/Output Intake and Output 12/29/24 07:00 Intake Total 1650 ml Balance 1650 ml Intake Oral 1650 ml # Voids 5 # Bowel Movements 1 Medications Current Medications Medications Dose Ordered Sig/Tara Route Start Time Stop Time Status Last Admin Dose Admin Acetaminophen/ Hydrocodone Bitart 1 tab Q4HP PRN PO 12/26/24 15:30 12/28/24 21:21 1 TAB Ondansetron HCl 4 mg Q4HP PRN IV 12/26/24 15:30 Docusate Sodium 100 mg BIDPRN PRN PO 12/26/24 15:30 Acetaminophen 650 mg Q6HP PRN PO 12/26/24 15:30 Diagnostic Test (Pha) 1 strip ACHS 12/26/24 17:00 12/29/24 06:04 1 STRIP Insulin Human Regular HS SC 12/26/24 22:00 12/28/24 21:21 4 UNITS Insulin Human Regular AC SC 12/26/24 17:00 12/27/24 17:48 3 UNITS Dextrose 50 ml UD PRN IV 12/26/24 16:45 Furosemide 20 mg DAILY PO 12/27/24 10:00 12/28/24 11:12 20 MG Glipizide 5 mg DAILY PO 12/27/24 10:00 12/28/24 11:12 5 MG Metoprolol Tartrate 50 mg DAILY PO 12/27/24 10:00 12/28/24 11:12 50 MG Spironolactone 25 mg DAILY PO 12/27/24 10:00 12/28/24 11:12 25 MG Tamsulosin HCl 0.4 mg DAILY PO 12/27/24 10:00 12/28/24 11:12 0.4 MG Atorvastatin Calcium 80 mg HS PO 12/26/24 22:00 12/28/24 21:04 80 MG Patient Own Medication 10 mg DAILY PO 12/27/24 10:00 Laboratory Results Laboratory Tests 12/27/24 04:56 Urinalysis Test 12/26/24 13:37 Urine Color Colorless (Yellow) Urine Clarity Clear (Clear) Urine pH 5.0 (5.0-9.0) Urine Specific [place] 1.010 (1.001-1.035) Urine Protein Negative (Negative) Urine Ketones Negative (Negative) Urine Blood Negative /uL (Negative) Urine Nitrite Negative (Negative) Urine Bilirubin Negative (Negative) Urine Urobilinogen Normal mg/dL (Negative) Urine Leukocyte Esterase Negative /uL (Negative) Urine RBC 1 /hpf (0 - 3) Urine Microscopic WBC < 1 /HPF (0-3) Urine Squamous Epithelial Cells None seen /hpf (<5) Urine Bacteria None seen /hpf (None Seen) Urine Glucose 4+ mg/dL (Normal) H Labs and/or images reviewed: Labs reviewed by me, Image(s) reviewed by me Assessment/Plan Assessment/Plan Acute left flank pain [place] 4.3 cm left kidney mass: Urology consult for Dr. Mccabe appreciated recommended CT abdomen pelvis with IV contrast, patient is allergic to the dye. Consult placed for the interventional radiologist for the biopsy, holding aspirin for five days prior to the biopsy Severe left leg pain: CT LS spine shows spinal canal stenosis at L4-5 and severe DJD changes, MRI of the L-spine ordered consult for spine surgeon Dr. Chambers Uncontrolled diabetes: Insulin sliding scale History of coronary artery disease status post CABG and stents Hypertension Hypercholesterolemia History of CVA [address] left hip negative for any fracture Acute urinary retention: Consult for Urology Dr. Mccabe appreciated History of osteoporosis Time spent 66 minutes Advanced care planning time 20 minutes Patient is full code Daughter Rufina [phone] at bedside Plan discussed with: Patient My Orders Orders - LEANNA WALLACE MD Procedure Category Date Status Time * Radiologist Consult CONS 12/28/24 Transmitted 08:26 Lumbar Spine Wo MRI 12/28/24 Resulted Contrast 08:26 Psa Total+% Free LAB 12/28/24 In Process 08:29 * Orthopedic Consult CONS 12/28/24 Transmitted 08:40 Date of Service: Dec 29, 2024 Billing Provider: LEANNA WALLACE MD Common Visit Codes: [id number] INP/OBS CARE(HIGH) LEANNA WALLACE MD Dec 29, 2024 07:54
[2024-12-29 08:07] LABS: Prostate Specific Antigen 0.2 ng/mL (0.0-4.0)
[2024-12-29 14:02] LABS: INR 1.04 (0.9-1.15); Partial Thromboplastin Time 30.7 SEC (24.5-34.5); Prothrombin Time 11.0 sec (9.3-11.8)
--- NOTE | 2024-12-30 08:35 | DVHPN2 ---
Reviewed: Care Plan, H&P, Labs, Medications, Previous Orders, Radiology Changes from previous H/P or p: No Changes Eyes: No Pain, No Vision change, No Conjunctivae inflammation, No Eyelid inflammation, No Other, No Redness ENT: No Ear pain, No Ear discharge, No Nose pain, No Nose discharge, No Nose congestion, No Mouth pain, No Mouth swelling, No Throat pain, No Throat swelling, No Other Cardiovascular: No Chest Pain, No Palpitations, No Orthopnea, No Paroxysmal Noc. Dyspnea, No Edema, No Lt Headedness, No Other Respiratory: No Cough, No Dry, No Shortness of breath, No SOB with excertion, No Wheezing, No Hemoptysis, No Pleuritic Pain, No Sputum, No Other Gastrointestinal: No Nausea, No Vomiting, No Abdominal Pain, No Diarrhea, No Constipation, No Melena, No Hematochezia, No Other Genitourinary: No Dysuria, No Frequency, No Incontinence, No Hematuria, No Retention, No Other Musculoskeletal: No other, No neck pain, No shoulder pain, No arm pain; back pain (left flank); No hand pain; leg pain (Shooting pain down left leg with numbness and tingling); No foot pain Skin: No Rash, No Lesions, No Jaundice, No Bruising, No Other Objective Vitals Vital Signs Date Time Temp Pulse Resp B/P (MAP) Pulse Ox O2 Delivery O2 Flow Rate FiO2 12/29/24 20:00 98 Room Air* 0 21 12/29/24 17:00 97.2 72 16 116/69 (85) 97.2 Intake/Output Intake and Output 12/30/24 07:00 Intake Total 850 ml Balance 850 ml Intake Oral 850 ml # Voids 2 # Bowel Movements 1 Medications Current Medications Medications Dose Ordered Sig/Tara Route Start Time Stop Time Status Last Admin Dose Admin Acetaminophen/ Hydrocodone Bitart 1 tab Q4HP PRN PO 12/26/24 15:30 12/30/24 02:28 1 TAB Ondansetron HCl 4 mg Q4HP PRN IV 12/26/24 15:30 Docusate Sodium 100 mg BIDPRN PRN PO 12/26/24 15:30 Acetaminophen 650 mg Q6HP PRN PO 12/26/24 15:30 Diagnostic Test (Pha) 1 strip ACHS 12/26/24 17:00 12/30/24 06:08 1 STRIP Insulin Human Regular HS SC 12/26/24 22:00 12/29/24 21:08 6 UNITS Insulin Human Regular AC SC 12/26/24 17:00 12/27/24 17:48 3 UNITS Dextrose 50 ml UD PRN IV 12/26/24 16:45 Furosemide 20 mg DAILY PO 12/27/24 10:00 12/29/24 09:53 20 MG Glipizide 5 mg DAILY PO 12/27/24 10:00 12/29/24 09:53 5 MG Metoprolol Tartrate 50 mg DAILY PO 12/27/24 10:00 12/29/24 09:54 50 MG Spironolactone 25 mg DAILY PO 12/27/24 10:00 12/29/24 09:53 25 MG Tamsulosin HCl 0.4 mg DAILY PO 12/27/24 10:00 12/29/24 09:53 0.4 MG Atorvastatin Calcium 80 mg HS PO 12/26/24 22:00 12/29/24 21:04 80 MG Patient Own Medication 10 mg DAILY PO 12/27/24 10:00 12/29/24 09:53 10 MG Laboratory Results Laboratory Tests 12/27/24 04:56 Coagulation Test 12/29/24 13:22 Prothrombin Time 11.0 sec (9.3-11.8) Prothrombin Time INR 1.04 (0.9-1.15) Activated Partial Thromboplast Time 30.7 SEC (24.5-34.5) Urinalysis Test 12/26/24 13:37 Urine Color Colorless (Yellow) Urine Clarity Clear (Clear) Urine pH 5.0 (5.0-9.0) Urine Specific [place] 1.010 (1.001-1.035) Urine Protein Negative (Negative) Urine Ketones Negative (Negative) Urine Blood Negative /uL (Negative) Urine Nitrite Negative (Negative) Urine Bilirubin Negative (Negative) Urine Urobilinogen Normal mg/dL (Negative) Urine Leukocyte Esterase Negative /uL (Negative) Urine RBC 1 /hpf (0 - 3) Urine Microscopic WBC < 1 /HPF (0-3) Urine Squamous Epithelial Cells None seen /hpf (<5) Urine Bacteria None seen /hpf (None Seen) Urine Glucose 4+ mg/dL (Normal) H Labs and/or images reviewed: Labs reviewed by me, Image(s) reviewed by me Assessment/Plan Assessment/Plan Acute left flank pain [place] 4.3 cm left kidney mass: Urology consult for Dr. Mccabe appreciated recommended CT abdomen pelvis with IV contrast, patient is allergic to the dye. Consult placed for the interventional radiologist for the biopsy, holding aspirin for five days prior to the biopsy Severe left leg pain: CT LS spine shows spinal canal stenosis at L4-5 and severe DJD changes, MRI of the L-spine ordered consult for spine surgeon Dr. Chambers Uncontrolled diabetes: Insulin sliding scale History of coronary artery disease status post CABG and stents Hypertension Hypercholesterolemia History of CVA [address] left hip negative for any fracture Acute urinary retention: Consult for Urology Dr. Mccabe appreciated History of osteoporosis Time spent 55 minutes Advanced care planning time 20 minutes Patient is full code Daughter Rufina [phone] at bedside Plan discussed with: Patient Date of Service: Dec 30, 2024 Billing Provider: LEANNA WALLACE MD Common Visit Codes: [id number] INP/OBS CARE(HIGH) LEANNA WALLACE MD Dec 30, 2024 08:35
[2024-12-30 09:00] VITALS: BP 101/64; PULSE 71; RESP 16; TEMP 97.5; O2SAT 98
--- NOTE | 2024-12-30 09:25 | DVHPN2 ---
Progress Note - Dictate Date Seen: Dec 30, 2024 Medical Necessity Reason Pt with a Central, PICC or Fol: No Subjective Reports intermittent left flank discomfort, consistent with prior evaluations and well-controlled with oral analgesics (Langeloth). No acute changes. No hematuria, no dysuria, no fevers, no chills. Tolerating diet. vital signs Vital Sign Date Time Temp Pulse Resp B/P (MAP) Pulse Ox O2 Delivery O2 Flow Rate FiO2 12/30/24 08:00 Room Air* 0 21 12/29/24 20:00 98 12/29/24 17:00 97.2 72 16 116/69 (85) 97.2 Total Intake and Output 12/29/24 12/29/24 12/30/24 15:00 23:00 07:00 Intake Total 850 ml Balance 850 ml medications Current Medications Medications Dose Ordered Sig/Tara Route Start Time Stop Time Status Last Admin Dose Admin Acetaminophen/ Hydrocodone Bitart 1 tab Q4HP PRN PO 12/26/24 15:30 12/30/24 02:28 1 TAB Ondansetron HCl 4 mg Q4HP PRN IV 12/26/24 15:30 Docusate Sodium 100 mg BIDPRN PRN PO 12/26/24 15:30 Acetaminophen 650 mg Q6HP PRN PO 12/26/24 15:30 Diagnostic Test (Pha) 1 strip ACHS 12/26/24 17:00 12/30/24 06:08 1 STRIP Insulin Human Regular HS SC 12/26/24 22:00 12/29/24 21:08 6 UNITS Insulin Human Regular AC SC 12/26/24 17:00 12/27/24 17:48 3 UNITS Dextrose 50 ml UD PRN IV 12/26/24 16:45 Furosemide 20 mg DAILY PO 12/27/24 10:00 12/29/24 09:53 20 MG Glipizide 5 mg DAILY PO 12/27/24 10:00 12/29/24 09:53 5 MG Metoprolol Tartrate 50 mg DAILY PO 12/27/24 10:00 12/29/24 09:54 50 MG Spironolactone 25 mg DAILY PO 12/27/24 10:00 12/29/24 09:53 25 MG Tamsulosin HCl 0.4 mg DAILY PO 12/27/24 10:00 11/22/25 09:53 0.4 MG Atorvastatin Calcium 80 mg HS PO 12/26/24 22:00 12/29/24 21:04 80 MG Patient Own Medication 10 mg DAILY PO 12/27/24 10:00 12/29/24 09:53 10 MG objective IR already consulted earlier this admission for left renal mass measuring 3.34.3 cm, suspicious for RCC. Plan already in place for percutaneous renal mass biopsy after 5-day anticoagulation hold. Renal function remains excellent (Cr 0.86). UA remains negative for infection or hematuria. Hemodynamics stable; afebrile. No urologic emergencies identified. laboratory and microbiology Laboratory Tests 12/27/24 04:56 Test 12/27/24 04:56 Range/Units Serum Glucose 85 # 74-106 mg/dL Assessment/Plan 69-year-old male with indeterminate left renal mass (3.34.3 cm) suspicious for RCC. Renal function normal. No hematuria, no signs of infection, and flank pain is stable, controlled with PO analgesia. IR is already consulted with a clear plan in place for renal mass biopsy after appropriate anticoagulation washout. No new urologic issues today. No indication for additional imaging or intervention at this time. MRI Abdomen (non-contrast): 4.3 cm indeterminate left upper pole mass with restricted diffusion; RCC remains in differential. Renal Ultrasound: 4 cm left lower pole renal mass. CT (incidental): 3.3 cm left upper pole mass highly concerning for RCC. Clinical T1a left renal mass, requiring tissue diagnosis. Workup already initiated. 1. Proceed with IR percutaneous renal mass biopsy per existing plan once anticoagulation hold is complete. 2. No immediate urologic intervention indicated for flank pain; continue PO Langeloth PRN. 3. Continue to monitor vitals, CBC, renal function. Plan discussed with: MONICO Black NP Dec 30, 2024 09:25
[2024-12-30 12:50] VITALS: BP 123/74; PULSE 65; RESP 18; TEMP 97.6; O2SAT 98
[2024-12-30 17:14] VITALS: BP 98/62; PULSE 63; RESP 17; TEMP 97.9; O2SAT 96
[2024-12-30 21:00] VITALS: BP 113/70; PULSE 72; RESP 18; TEMP 97.8; O2SAT 97
[2024-12-31] VITALS (8 sets, daily range): BP systolic 102–126; BP diastolic 58–80; PULSE 62–83; RESP 14–18; TEMP 97.6–98.2; O2SAT 95–98
[2024-12-31 06:15] LABS: Hematocrit 42.5 % (41.0-53.0); Hemoglobin 14.6 g/dL (13.5-17.5); Mean Corpuscular Hemoglobin 31.3 pg (28.0-32.0); Mean Corpuscular Volume 91.0 fL (80.0-100.0); Nucleated Red Blood Cells % 0.0 %
[2024-12-31 06:31] LABS: Alanine Aminotransferase 25 U/L (7-40); Anion Gap 11 (5-15); BUN/Creatinine Ratio 23.1 (10.0-20.0); Calcium 9.8 mg/dL (8.7-10.4); Carbon Dioxide 28 mmol/L (20-31); Glucose 103 mg/dL (74-106); Potassium 4.8 mmol/L (3.5-5.1); Total Protein 8.1 g/dL (5.7-8.2)
[2024-12-31 06:32] LABS: Albumin 4.4 g/dL (3.2-4.8)
[2024-12-31 06:33] LABS: Bilirubin, Total 1.0 mg/dL (0.2-1.0)
[2024-12-31 06:40] LABS: Alkaline Phosphatase 170 U/L (46-116); Blood Urea Nitrogen 27 mg/dL (9-23); Chloride 97 mmol/L (98-107); Sodium 136 mmol/L (136-145)
--- NOTE | 2024-12-31 09:52 | DVH ---
CHEST RADIOGRAPH Indication: preop Technique: Single frontal view of the chest was obtained. Comparison: XY L RIB X RAY on DOS: 06/19/24 Findings: Postsurgical changes in the mediastinum. No focal consolidation. No significant pleural effusion. No pneumothorax. Nonenlarged cardiomediastinal silhouette. IMPRESSION: No acute pulmonary process.
--- NOTE | 2024-12-31 10:19 | DVHPN2 ---
Reviewed: Care Plan, H&P, Labs, Medications, Previous Orders, Radiology Changes from previous H/P or p: No Changes Eyes: No Pain, No Vision change, No Conjunctivae inflammation, No Eyelid inflammation, No Other, No Redness ENT: No Ear pain, No Ear discharge, No Nose pain, No Nose discharge, No Nose congestion, No Mouth pain, No Mouth swelling, No Throat pain, No Throat swelling, No Other Cardiovascular: No Chest Pain, No Palpitations, No Orthopnea, No Paroxysmal Noc. Dyspnea, No Edema, No Lt Headedness, No Other Respiratory: No Cough, No Dry, No Shortness of breath, No SOB with excertion, No Wheezing, No Hemoptysis, No Pleuritic Pain, No Sputum, No Other Gastrointestinal: No Nausea, No Vomiting, No Abdominal Pain, No Diarrhea, No Constipation, No Melena, No Hematochezia, No Other Genitourinary: No Dysuria, No Frequency, No Incontinence, No Hematuria, No Retention, No Other Musculoskeletal: No other, No neck pain, No shoulder pain, No arm pain; back pain (left flank); No hand pain; leg pain (Shooting pain down left leg with numbness and tingling); No foot pain Skin: No Rash, No Lesions, No Jaundice, No Bruising, No Other Objective Vitals Vital Signs Date Time Temp Pulse Resp B/P (MAP) Pulse Ox O2 Delivery O2 Flow Rate FiO2 12/31/24 05:00 97.6 68 18 126/80 (95) 96 97.6 12/30/24 19:55 Room Air* 0 21 Intake/Output Intake and Output 12/31/24 07:00 Intake Total 500 ml Balance 500 ml Intake Oral 500 ml # Voids 5 # Bowel Movements 2 Medications Current Medications Medications Dose Ordered Sig/Tara Route Start Time Stop Time Status Last Admin Dose Admin Acetaminophen/ Hydrocodone Bitart 1 tab Q4HP PRN PO 12/26/24 15:30 12/30/24 20:15 1 TAB Ondansetron HCl 4 mg Q4HP PRN IV 12/26/24 15:30 Docusate Sodium 100 mg BIDPRN PRN PO 12/26/24 15:30 Acetaminophen 650 mg Q6HP PRN PO 12/26/24 15:30 Diagnostic Test (Pha) 1 strip ACHS 12/26/24 17:00 12/31/24 06:17 1 STRIP Insulin Human Regular HS SC 12/26/24 22:00 12/29/24 21:08 6 UNITS Insulin Human Regular AC SC 12/26/24 17:00 12/30/24 11:41 3 UNITS Dextrose 50 ml UD PRN IV 12/26/24 16:45 Furosemide 20 mg DAILY PO 12/27/24 10:00 12/30/24 10:16 20 MG Glipizide 5 mg DAILY PO 12/27/24 10:00 12/30/24 10:16 5 MG Metoprolol Tartrate 50 mg DAILY PO 12/27/24 10:00 12/30/24 10:15 50 MG Spironolactone 25 mg DAILY PO 12/27/24 10:00 12/30/24 10:16 25 MG Tamsulosin HCl 0.4 mg DAILY PO 12/27/24 10:00 12/30/24 10:15 0.4 MG Atorvastatin Calcium 80 mg HS PO 12/26/24 22:00 12/30/24 21:12 80 MG Patient Own Medication 10 mg DAILY PO 12/27/24 10:00 12/30/24 10:16 10 MG Laboratory Results Laboratory Tests 12/31/24 05:43 Chemistry Test 12/31/24 05:43 Albumin 4.4 g/dL (3.2-4.8) Calcium Level 9.8 mg/dL (8.7-10.4) Total Protein 8.1 g/dL (5.7-8.2) LFT Test 12/31/24 05:43 Alanine Aminotransferase (ALT) 25 U/L (7-40) Alkaline Phosphatase 170 U/L (46-116) H Aspartate Amino Transferase (AST) 29 U/L (13-40) Total Bilirubin 1.0 mg/dL (0.2-1.0) Urinalysis Test 12/26/24 13:37 Urine Color Colorless (Yellow) Urine Clarity Clear (Clear) Urine pH 5.0 (5.0-9.0) Urine Specific [place] 1.010 (1.001-1.035) Urine Protein Negative (Negative) Urine Ketones Negative (Negative) Urine Blood Negative /uL (Negative) Urine Nitrite Negative (Negative) Urine Bilirubin Negative (Negative) Urine Urobilinogen Normal mg/dL (Negative) Urine Leukocyte Esterase Negative /uL (Negative) Urine RBC 1 /hpf (0 - 3) Urine Microscopic WBC < 1 /HPF (0-3) Urine Squamous Epithelial Cells None seen /hpf (<5) Urine Bacteria None seen /hpf (None Seen) Urine Glucose 4+ mg/dL (Normal) H Assessment/Plan Assessment/Plan Acute left flank pain [place] 4.3 cm left kidney mass: Urology consult for Dr. Mccabe appreciated recommended CT abdomen pelvis with IV contrast, patient is allergic to the dye. Consult placed for the interventional radiologist for the biopsy, holding aspirin for five days prior to the biopsy Severe left leg pain: CT LS spine shows spinal canal stenosis at L4-5 and severe DJD changes, MRI of the L-spine ordered consult for spine surgeon Dr. Chambers Uncontrolled diabetes: Insulin sliding scale History of coronary artery disease status post CABG and stents Hypertension Hypercholesterolemia History of CVA [address] left hip negative for any fracture Acute urinary retention: Consult for Urology Dr. Mccabe appreciated History of osteoporosis Time spent 55 minutes Advanced care planning time 20 minutes Patient is full code Daughter Rufina [phone] at bedside Plan discussed with: Patient My Orders Orders - LEANNA WALLACE MD Procedure Category Date Status Time Chest Portable XY 12/31/24 Resulted 04:00 Electrocardigram EKG 12/31/24 Logged 05:25 Date of Service: Dec 31, 2024 Billing Provider: LEANNA WALLACE MD Common Visit Codes: [id number] INP/OBS CARE(HIGH) LEANNA WALLACE MD Dec 31, 2024 10:19
--- NOTE | 2024-12-31 14:13 | DVHINCON2 ---
Consultation - Surgical Date Seen: Dec 31, 2024 Referring Physician Referring Physician Attending Doctor: Leanna Wallace MD Reason for Consultation Reason for Visit: Left flank pain History of Present Illness History of Present Illness History of Present Illness Edinson Aguirre is a 69-year-old male with past medical history of diabetes, osteoporosis, coronary artery disease, hyperlipidemia, [place], and CVA who came to the hospital for left flank pain and left leg pain. Patient states the pain began a couple weeks ago. He came to this hospital on 12/11/2024, had a CT of abdomen/pelvis and it showed a left renal lesion. He was told to follow up as an outpatient. He has seen his primary care provider and had a scan completed last Tuesday. He is waiting for the results. He came to the hospital today because for the last 6 days his pain has been increasing significantly. He states it starts on his left flank then shoots down his leg. The pain has become so severe he is having a hard time ambulating or putting weight on his left leg. He states he also experiences numbness on his left leg. Patient also states he has been having a hard time emptying his bladder completely. 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 Please confirm with patient/daughter. Home Meds Active Scripts Gabapentin (Gabapentin) 300 Mg Cap, 1 CAP PO TID PRN for 10 Days, #60 CAP 5 Refills Prov:HARMEET PAGAN MD 05/06/24 Reported Medications Dapagliflozin Propanediol (Farxiga) 10 Mg Tab, 10 MG PO DAILY, TAB 12/26/24 Glipizide (Glipizide) 5 Mg Tab, 1 TAB PO DAILY, #60 TAB 3 Refills 12/26/24 Spironolactone (Spironolactone) 25 Mg Tab, 1 TAB PO DAILY, #90 TAB 1 Refill 12/26/24 Furosemide (Lasix) 20 Mg Tb, 1 TAB PO DAILY, #90 TAB 1 Refill 12/26/24 Aspirin (Aspirin) 81 Mg Chw, 81 MG PO DAILY, TAB.CHEW 12/26/24 Metoprolol Tartrate (Metoprolol Tartrate) 50 Mg Tab, 50 MG PO DAILY, TAB 12/26/24 Metformin Hydrochloride (Metformin Hcl) 1,000 Mg Tab, 1 TAB PO BID, #60 TAB 5 Refills 12/26/24 Docusate Sodium (Colace) 100 Mg Cap, 1 CAP PO BID PRN, #30 CAP 12/26/24 Tamsulosin Hcl (Flomax) 0.4 Mg Cap, 1 CAP PO DAILY, #30 CAP 11 Refills 12/26/24 Atorvastatin Calcium (ATORVASTATIN CALCIUM) 80 Mg Tab, 1 TAB PO HS 12/26/24 Review of systems Review of Systems: MSK:Abnormal ( left leg pain) Examination Vital signs Imaging: MRI OF THE LUMBAR SPINE, NONCONTRAST REASON FOR EXAM: Lumbar radiculopathy TECHNIQUE: The patient was screened for magnet safety prior to scanning. Sag ittal T1-weighted, fast spine echo, multiecho T2- weighted, and fast spin echo T2-weighted sequences with fat saturation were obtained. Axial fast spin echo multiecho T2- weighted sequences were obtained. FINDINGS: There is a heterogeneous appearance of the bone marrow. There is no acute displaced fracture. There is minimal loss of intervertebral disc height. The conus terminates at L1 and is unremarkable in appearance. There is a left renal cyst. The paraspinal soft tissues are unremarkable. At T12-L1, there is no significant spinal canal or neural foraminal stenosis. At L1-2, there is no significant spinal canal or neural foraminal stenosis. At L2-3, a broad-based disc protrusion effaces the thecal sac. There is mild facet arthropathy and ligamentum flavum hypertrophy. There is narrowing of the lateral recesses. There is no significant spinal canal or neural foraminal stenosis. At L3-4, a broad-based disc protrusion effaces the thecal sac and narrows the lateral recesses, with possible contact of the exiting nerve roots. There is mild facet arthropathy ligamentum flavum hypertrophy. There is no significant spinal canal or neural foraminal stenosis. At L4-5, a broad-based disc protrusion effaces the thecal sac. There is facet arthropathy and ligamentum flavum hypertrophy. There is narrowing of the lateral recesses. There is no significant spinal canal or neural foraminal stenosis. At L5-S1, mild facet arthropathy contributes to mild bilateral neural foraminal stenosis. IMPRESSION: 1. Mild degenerative changes of the lumbar spine as detailed. 2. Nonspecific heterogeneous appearance of the bone marrow. RING PHYSICIAN: LEANNA WALLACE MD PROCEDURE(s): LS2CT - LS SPINE WO CONTRAST REASON: Left leg pain and numbness ORDER NUMBER(s): [id number], ACCESSION NUMBER(s): [id number] CT LS SPINE WO CONTRAST Indication: Left leg pain and numbness EXAM DATE: 12/27/2024 11:36 AM COMPARISON: None TECHNIQUE: CT of the lumbar spine without intravenous contrast. RADIATION DOSE: CTDIvol: 11.52 mGy, DLP: 345.54 mGy*cm FINDINGS: The lumbar vertebral body heights are maintained. Kkok-an-smcmrolz multilevel disc space narrowing. Mild lumbar dextrocurvature. Qdsw-nt-miuydxms facet hypertrophic changes. There is pycp-fw-scvedzfz neural foraminal stenosis at L3-4, L4-5 and L5-S1.m 4 mm disc protrusion L5. Thecal sac measures 7 mm at this level consistent with moderate spinal canal stenosis. Aortic atherosclerotic disease.m There is a left renal upper pole mass measuring 3.3 cm IMPRESSION: Left renal upper pole mass measuring 3.3 cm, highly concerning for renal neoplasm/ renal cell carcinoma as previously described. Recommend MRI abdomen with and without contrast and urology consultation. Isil-wn-yvwvunxz lumbar degenerative disc disease. Moderate spinal canal stenosis L4-5. Wdrh-tj-rfdbvvpq multilevel neural foraminal stenosis. MRI lumbar spine recommended for further characterization. Vital Signs Date Time Temp Pulse Resp B/P (MAP) Pulse Ox O2 Delivery O2 Flow Rate FiO2 12/31/24 13:00 97.6 76 14 118/73 (88) 95 97.6 12/31/24 08:00 Room Air* 0 21 Laboratory Labs Test 12/31/24 11:52 12/31/24 05:43 12/29/24 13:22 12/28/24 10:20 Range/Units POC Glucose 267 H 70-106 mg/dl White Blood Count 8.6 4.4-10.8 10^3/uL Red Blood Count 4.67 4.5-5.90 10^6/uL Hemoglobin 14.6 13.5-17.5 g/dL Hematocrit 42.5 # 41.0-53.0 % Mean Corpuscular Volume 91.0 80.0-100.0 fL Mean Corpuscular Hemoglobin 31.3 28.0-32.0 pg Mean Corpuscular Hemoglobin Concent 34.3 32.0-36.0 g/dL Red Cell Distribution Width 13.1 11.8-14.3 % Platelet Count 338 140-450 10^3/uL Mean Platelet Volume 7.6 6.9-10.8 fL Neutrophils (%) (Auto) 65.4 37.0-80.0 % Lymphocytes (%) (Auto) 23.7 10.0-50.0 % Monocytes (%) (Auto) 7.9 0.0-12.0 % Eosinophils (%) (Auto) 2.2 0.0-7.0 % Basophils (%) (Auto) 0.8 0.0-2.0 % Neutrophils # (Auto) 5.6 1.6-8.6 10 ^3/uL Lymphocytes # (Auto) 2.0 0.4-5.4 10 ^3/uL Monocytes # (Auto) 0.7 0-1.3 10 ^3/uL Eosinophils # (Auto) 0.2 0-0.8 10 ^3/uL Basophils # (Auto) 0.1 0-0.2 10 ^3/uL Nucleated Red Blood Cells 0.0 % Sodium Level 136 136-145 mmol/L Potassium Level 4.8 3.5-5.1 mmol/L Chloride Level 97 L 98-107 mmol/L Carbon Dioxide Level 28 20-31 mmol/L Anion Gap 11 5-15 Blood Urea Nitrogen 27 H 9-23 mg/dL Creatinine 1.17 0.700-1.30 mg/dL Glomerular Filtration Rate Calc 68 >90 mL/min BUN/Creatinine Ratio 23.1 H 10.0-20.0 Serum Glucose 103 74-106 mg/dL Calcium Level 9.8 8.7-10.4 mg/dL Total Bilirubin 1.0 0.2-1.0 mg/dL Aspartate Amino Transferase (AST) 29 13-40 U/L Alanine Aminotransferase (ALT) 25 7-40 U/L Alkaline Phosphatase 170 H 46-116 U/L Total Protein 8.1 5.7-8.2 g/dL Albumin 4.4 3.2-4.8 g/dL Prothrombin Time 11.0 9.3-11.8 sec Prothrombin Time INR 1.04 0.9-1.15 Activated Partial Thromboplast Time 30.7 24.5-34.5 SEC Free Prostate Specific Antigen 0.08 N/A ng/mL Percent Free Prostate Specific Ag 40.0 . % Prostate Specific Antigen Total 0.2 0.0-4.0 ng/mL Test 12/26/24 13:37 Range/Units Urine Color Colorless Yellow Urine Clarity Clear Clear Urine pH 5.0 5.0-9.0 Urine Specific [place] 1.010 1.001-1.035 Urine Protein Negative Negative Urine Ketones Negative Negative Urine Blood Negative Negative /uL Urine Nitrite Negative Negative Urine Bilirubin Negative Negative Urine Urobilinogen Normal Negative mg/dL Urine Leukocyte Esterase Negative Negative /uL Urine RBC 1 0 - 3 /hpf Urine Microscopic WBC < 1 0-3 /HPF Urine Squamous Epithelial Cells None seen <5 /hpf Urine Bacteria None seen None Seen /hpf Urine Glucose 4+ H Normal mg/dL Examination: GENERAL:Normal, HEENT:Normal, NECK:Normal, LUNGS:Normal, CVS:Normal, ABDOMEN:Normal, MSK:Abnormal (Left great toe pain), SKIN:Normal, NEURO:Normal (Patient has strong lower extremities we need do not touch his left great toe 5/5), :Normal Problem List/Assessment/Plan Problems: (1) Pain of right great toe Assessment and Plan Mild degenerative changes of the lumbar spine - These findings do not warrant any surgical intervention on an emergent basis at this point in time. Patient has pain generally starts from the left great toe and shoots up his back to his low back and hip area. Very similar complaints to somebody experiencing a gout flare-up Continue care and support per admitting team's discretion Physical therapy evaluation, treatment recommendations and safe discharge planning recommendations Effective pain management including muscle relaxers if the patient is complain ing of muscle spasms Discussed treatment options with the patient per family and patient recollection patient does have a history of gout which is currently untreated, originally gout showed up in his right foot and it felt very similar to what he is expe riencing now in his left great toe. Patient states that it is like stepping on broken glass that shoots up his leg to his lower back. Patient would benefit from seeing his PCP and being tested for gout and being put on the proper medications. If the patient does develop lumbar pain after his gout flare is subsided physical therapy would be beneficial from his primary care provider as an outpatient, call with questions Mile Anderson [facility] Orthopaedic Spine Surgery nurse practitioner For Dr Ulysses Chambers Patient was examined, chart reviewed, labs evaluated, and diagnostic studies and findings analyzed. Case was discussed with Dr. Dexter Chambers who formulated the plan of care. This medical document was created using an electronic medical record system with [employer] dictation system. Although this document has been carefully reviewed, there might still be some phonetic and typographical errors. These areas are purely typographical due to imperfections of the software programs, and do not reflect any compromise in the patient's medical care. Plan discussed with Plan discussed with: Patient, Other Visit Coding Surgery Date of Service if different f: Dec 31, 2024 Billing Provider: ANDRE ANDERSON NP Surgery Visit Codes: 73561 - INP CONSULT <55 MIN ANDER ANDERSON NP Dec 31, 2024 14:13
[2025-01-01 01:00] VITALS: BP 112/69; PULSE 68; RESP 18; TEMP 97.8; O2SAT 99
[2025-01-01 05:00] VITALS: BP 112/72; PULSE 71; RESP 18; TEMP 97.9; O2SAT 96
--- NOTE | 2025-01-01 08:48 | DVHPN2 ---
Reviewed: Care Plan, H&P, Labs, Medications, Previous Orders, Radiology Changes from previous H/P or p: No Changes Eyes: No Pain, No Vision change, No Conjunctivae inflammation, No Eyelid inflammation, No Other, No Redness ENT: No Ear pain, No Ear discharge, No Nose pain, No Nose discharge, No Nose congestion, No Mouth pain, No Mouth swelling, No Throat pain, No Throat swelling, No Other Cardiovascular: No Chest Pain, No Palpitations, No Orthopnea, No Paroxysmal Noc. Dyspnea, No Edema, No Lt Headedness, No Other Respiratory: No Cough, No Dry, No Shortness of breath, No SOB with excertion, No Wheezing, No Hemoptysis, No Pleuritic Pain, No Sputum, No Other Gastrointestinal: No Nausea, No Vomiting, No Abdominal Pain, No Diarrhea, No Constipation, No Melena, No Hematochezia, No Other Genitourinary: No Dysuria, No Frequency, No Incontinence, No Hematuria, No Retention, No Other Musculoskeletal: No other, No neck pain, No shoulder pain, No arm pain; back pain (left flank); No hand pain; leg pain (Shooting pain down left leg with numbness and tingling); No foot pain Skin: No Rash, No Lesions, No Jaundice, No Bruising, No Other Objective Vitals Vital Signs Date Time Temp Pulse Resp B/P (MAP) Pulse Ox O2 Delivery O2 Flow Rate FiO2 01/01/25 05:00 97.9 71 18 112/72 (85) 96 97.9 12/31/24 20:00 Room Air* 0 21 Intake/Output Intake and Output 01/01/25 07:00 Intake Total 1100 ml Balance 1100 ml Intake Oral 1100 ml # Voids 6 # Bowel Movements 4 Medications Current Medications Medications Dose Ordered Sig/Tara Route Start Time Stop Time Status Last Admin Dose Admin Acetaminophen/ Hydrocodone Bitart 1 tab Q4HP PRN PO 12/26/24 15:30 12/31/24 20:13 1 TAB Ondansetron HCl 4 mg Q4HP PRN IV 12/26/24 15:30 Docusate Sodium 100 mg BIDPRN PRN PO 12/26/24 15:30 Acetaminophen 650 mg Q6HP PRN PO 12/26/24 15:30 Diagnostic Test (Pha) 1 strip ACHS 12/26/24 17:00 01/01/25 06:06 1 STRIP Insulin Human Regular HS SC 12/26/24 22:00 12/31/24 21:35 4 UNITS Insulin Human Regular AC SC 12/26/24 17:00 12/31/24 11:30 9 UNITS Dextrose 50 ml UD PRN IV 12/26/24 16:45 Furosemide 20 mg DAILY PO 12/27/24 10:00 12/31/24 10:58 20 MG Glipizide 5 mg DAILY PO 12/27/24 10:00 12/31/24 10:00 5 MG Metoprolol Tartrate 50 mg DAILY PO 12/27/24 10:00 12/31/24 10:58 50 MG Spironolactone 25 mg DAILY PO 12/27/24 10:00 12/31/24 10:59 25 MG Tamsulosin HCl 0.4 mg DAILY PO 12/27/24 10:00 12/31/24 10:58 0.4 MG Atorvastatin Calcium 80 mg HS PO 12/26/24 22:00 12/31/24 21:24 80 MG Patient Own Medication 10 mg DAILY PO 12/27/24 10:00 12/30/24 10:16 10 MG Laboratory Results Laboratory Tests 12/31/24 05:43 Urinalysis Test 12/26/24 13:37 Urine Color Colorless (Yellow) Urine Clarity Clear (Clear) Urine pH 5.0 (5.0-9.0) Urine Specific [place] 1.010 (1.001-1.035) Urine Protein Negative (Negative) Urine Ketones Negative (Negative) Urine Blood Negative /uL (Negative) Urine Nitrite Negative (Negative) Urine Bilirubin Negative (Negative) Urine Urobilinogen Normal mg/dL (Negative) Urine Leukocyte Esterase Negative /uL (Negative) Urine RBC 1 /hpf (0 - 3) Urine Microscopic WBC < 1 /HPF (0-3) Urine Squamous Epithelial Cells None seen /hpf (<5) Urine Bacteria None seen /hpf (None Seen) Urine Glucose 4+ mg/dL (Normal) H Labs and/or images reviewed: Labs reviewed by me, Image(s) reviewed by me Assessment/Plan Assessment/Plan Acute left flank pain [place] 4.3 cm left kidney mass: Urology consult for Dr. Mccabe appreciated recommended CT abdomen pelvis with IV contrast, patient is allergic to the dye. Consult placed for the interventional radiologist for the biopsy, holding aspirin for five days prior to the biopsy Severe left leg pain: CT LS spine shows spinal canal stenosis at L4-5 and severe DJD changes, MRI of the L-spine ordered consult for spine surgeon Dr. Chambers appreciated Uncontrolled diabetes: Insulin sliding scale History of coronary artery disease status post CABG and stents Hypertension Hypercholesterolemia History of CVA [address] left hip negative for any fracture Acute urinary retention: Consult for Urology Dr. Mccabe appreciated History of osteoporosis Time spent 55 minutes Advanced care planning time 20 minutes Patient is full code Daughter Rufina [phone] at bedside Plan discussed with: Patient Date of Service: Jan 01, 2025 Billing Provider: LEANNA WALLACE MD Common Visit Codes: [id number] INP/OBS CARE(HIGH) LEANNA WALLACE MD Jan 01, 2025 08:48
--- NOTE | 2025-01-01 10:59 | ECG ---
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
--- NOTE | 2025-01-02 08:03 | DVHDS2 ---
Discharge Summary Date of Admission Dec 26, 2024 at 15:25 Date of Discharge: Jan 01, 2025 Admitting Diagnosis Left flank pain Wounds: None Labs/Diagnostic Data: Laboratory Results Test 01/01/25 05:56 12/31/24 05:43 12/29/24 13:22 12/28/24 10:20 POC Glucose 117 mg/dl (70-106) White Blood Count 8.6 10^3/uL (4.4-10.8) Red Blood Count 4.67 10^6/uL (4.5-5.90) Hemoglobin 14.6 g/dL (13.5-17.5) Hematocrit 42.5 % (41.0-53.0) Mean Corpuscular Volume 91.0 fL (80.0-100.0) Mean Corpuscular Hemoglobin 31.3 pg (28.0-32.0) Mean Corpuscular Hemoglobin Concent 34.3 g/dL (32.0-36.0) Red Cell Distribution Width 13.1 % (11.8-14.3) Platelet Count 338 10^3/uL (140-450) Mean Platelet Volume 7.6 fL (6.9-10.8) Neutrophils (%) (Auto) 65.4 % (37.0-80.0) Lymphocytes (%) (Auto) 23.7 % (10.0-50.0) Monocytes (%) (Auto) 7.9 % (0.0-12.0) Eosinophils (%) (Auto) 2.2 % (0.0-7.0) Basophils (%) (Auto) 0.8 % (0.0-2.0) Neutrophils # (Auto) 5.6 10 ^3/uL (1.6-8.6) Lymphocytes # (Auto) 2.0 10 ^3/uL (0.4-5.4) Monocytes # (Auto) 0.7 10 ^3/uL (0-1.3) Eosinophils # (Auto) 0.2 10 ^3/uL (0-0.8) Basophils # (Auto) 0.1 10 ^3/uL (0-0.2) Nucleated Red Blood Cells 0.0 % Sodium Level 136 mmol/L (136-145) Potassium Level 4.8 mmol/L (3.5-5.1) Chloride Level 97 mmol/L (98-107) Carbon Dioxide Level 28 mmol/L (20-31) Anion Gap 11 (5-15) Blood Urea Nitrogen 27 mg/dL (9-23) Creatinine 1.17 mg/dL (0.700-1.30) Glomerular Filtration Rate Calc 68 mL/min (>90) BUN/Creatinine Ratio 23.1 (10.0-20.0) Serum Glucose 103 mg/dL (74-106) Calcium Level 9.8 mg/dL (8.7-10.4) Total Bilirubin 1.0 mg/dL (0.2-1.0) Aspartate Amino Transferase (AST) 29 U/L (13-40) Alanine Aminotransferase (ALT) 25 U/L (7-40) Alkaline Phosphatase 170 U/L (46-116) Total Protein 8.1 g/dL (5.7-8.2) Albumin 4.4 g/dL (3.2-4.8) Prothrombin Time 11.0 sec (9.3-11.8) Prothrombin Time INR 1.04 (0.9-1.15) Activated Partial Thromboplast Time 30.7 SEC (24.5-34.5) Free Prostate Specific Antigen 0.08 ng/mL (N/A) Percent Free Prostate Specific Ag 40.0 % (.) Prostate Specific Antigen Total 0.2 ng/mL (0.0-4.0) Test 12/26/24 13:37 Urine Color Colorless (Yellow) Urine Clarity Clear (Clear) Urine pH 5.0 (5.0-9.0) Urine Specific [place] 1.010 (1.001-1.035) Urine Protein Negative (Negative) Urine Ketones Negative (Negative) Urine Blood Negative /uL (Negative) Urine Nitrite Negative (Negative) Urine Bilirubin Negative (Negative) Urine Urobilinogen Normal mg/dL (Negative) Urine Leukocyte Esterase Negative /uL (Negative) Urine RBC 1 /hpf (0 - 3) Urine Microscopic WBC < 1 /HPF (0-3) Urine Squamous Epithelial Cells None seen /hpf (<5) Urine Bacteria None seen /hpf (None Seen) Urine Glucose 4+ mg/dL (Normal) Other Laboratory Tests 12/31/24 05:43 Brief Hx & Hospital Course: 69-year-old male with a history of hypertension coronary artery disease status post CABG hypercholesterolemia history of CVA 2010 left type blind uncontrolled diabetes came in complaining of pain in the left flank area found to have 4 cm left kidney mass urology consult by . Advised renal biopsy by the interventional radiologist. The radiologist advised to hold aspirin for five days before doing the procedure which was held patient was scheduled for the kidney biopsy on 01/01/2025Tuesday but the patient decided to leave AMA and left AMA patient's daughter Rufina at the bedside. I advised the patient may be having renal cell carcinoma which can not be diagnosed without the biopsy. The patient and the daughter understand and they decided to leave AMA. Complications including possible and patient verbalized understanding. He will also complained of lumbar radiculopathy CT LS spine showed stenosis L4-5 which confirmed by MRI L-spine seen by spine surgeon Dr. Chambers who advised pain management and physical therapy Consults/Reason for consult Urology Dr. Mccabe Spine surgeon Dr. Chambers Operations or Procedures CT abdomen pelvis without contrast Left kidney ultrasound Condition at Discharge: Fair Final Diagnosis/Problems List Acute left flank pain [place] 4.3 cm left kidney mass: Urology consult for Dr. Mccabe appreciated recommended CT abdomen pelvis with IV contrast, patient is allergic to the dye. Consult placed for the interventional radiologist for the biopsy, holding aspirin for five days prior to the biopsy Severe left leg pain: CT LS spine shows spinal canal stenosis at L4-5 and severe DJD changes, MRI of the L-spine ordered consult for spine surgeon Dr. Chambers appreciated Uncontrolled diabetes: Insulin sliding scale History of coronary artery disease status post CABG and stents Hypertension Hypercholesterolemia History of CVA [address] left hip negative for any fracture Acute urinary retention: Consult for Urology Dr. Mccabe appreciated History of osteoporosis Discharge Disposition: AMA Discharge Instruct/Medications Diet comment: Not applicable patient left AMA Activity comment: Not applicable patient left AMA Follow Up/Referral: Not applicable patient left AMA Medications: Not applicable patient left AMA Scheduled Aspirin (Aspirin), 81 MG PO DAILY, (Reported) Atorvastatin Calcium (Atorvastatin Calcium), 1 TAB PO HS, (Reported) Dapagliflozin Propanediol (Farxiga), 10 MG PO DAILY, (Reported) Furosemide (Lasix), 1 TAB PO DAILY, (Reported) Glipizide (Glipizide), 1 TAB PO DAILY, (Reported) Metformin Hydrochloride (Metformin Hcl), 1 TAB PO BID, (Reported) Metoprolol Tartrate (Metoprolol Tartrate), 50 MG PO DAILY, (Reported) Spironolactone (Spironolactone), 1 TAB PO DAILY, (Reported) Tamsulosin Hcl (Flomax), 1 CAP PO DAILY, (Reported) Scheduled PRN Docusate Sodium (Colace), 1 CAP PO BID PRN, (Reported) Gabapentin (Gabapentin), 1 CAP PO TID PRN Discharge Statement: "Patient was advised to return to the ER or call 911 if any headaches, dizziness, shortness of breath, chest pain, abdominal pain, bleeding, fevers, or worsening of medical condition. Patient was counseled about treatment plan, medications, possible side effects, patientverbalized understanding. All questions were answered to the best of my ability. This discharge took greater then 30 minutes in planning, reviewing documentation, counseling the patient, and discussing with other team members." ASSESSMENT ASSESSMENT Hospital Course Patient left AMA without waiting for kidney biopsy Assessment Date of Service: Jan 01, 2025 Billing Provider: LEANNA WALLACE MD Common Visit Codes: 92020-VDN/OBS DISCH DAY >30min LEANNA WALLACE MD Jan 02, 2025 08:03
== END 2025-01-01 10:00 | disposition left against medical advice (07) | DRG 551 ==
LOC: ER 10:07 → OVERFLOW 15:25 → CENTRAL 12-27 18:29
PROVIDERS: ADMIT Family Medicine; ATTEND Family Medicine
DX: M48.061 Spinal stenosis, lumbar region without neurogenic claudication (principal); N17.0 Acute kidney failure with tubular necrosis; E11.65 Type 2 diabetes mellitus with hyperglycemia; I10 Essential (primary) hypertension; I69.30 Unspecified sequelae of cerebral infarction; M47.26 Other spondylosis with radiculopathy, lumbar region; M79.674 Pain in right toe(s); I25.10 Atherosclerotic heart disease of native coronary artery without angina pectoris; E78.00 Pure hypercholesterolemia, unspecified; H54.62 Unqualified visual loss, left eye, normal vision right eye; R33.9 Retention of urine, unspecified; M10.9 Gout, unspecified; Z53.29 Procedure and treatment not carried out because of patient's decision for other reasons; M81.0 Age-related osteoporosis without current pathological fracture; N28.89 Other specified disorders of kidney and ureter; Z95.1 Presence of aortocoronary bypass graft; Z98.61 Coronary angioplasty status; I25.2 Old myocardial infarction; Z86.711 Personal history of pulmonary embolism; Z79.84 Long term (current) use of oral hypoglycemic drugs; Z79.899 Other long term (current) drug therapy; Z79.82 Long term (current) use of aspirin; Z83.3 Family history of diabetes mellitus; Z82.49 Family history of ischemic heart disease and other diseases of the circulatory system
CPT/HCPCS: 36415; 71045; 72131; 72148; 73502; 73700; 74181; 76775; 80048; 80053; 81001; 82962; 84154; 85025; 85610; 85730; 86850; 86900; 86901; 93005; 97110; 97116; 97163; 97530; G0378; J1815